=== PATIENT | female | born 1940 | race Caucasian/White ===

== ENCOUNTER 2017-10-30 10:01 | Outpatient (REF) | payer MEDICARE, SELFPAY ==
[2017-10-30 22:16] LABS: Anion Gap 5.7 mmol/L (3-11); BUN 18 mg/dL (7-18); CO2 31.3 mmol/L (21.0-32.0); CREATININE 0.99 mg/dL (0.55-1.02); Calcium 9.6 mg/dL (8.5-10.1); Chloride 103 mmol/L (98-107); Estimated GFR 54.68 (mL/min/1.73m2); Glucose 94 mg/dL (70-100); Potassium 3.8 mmol/L (3.5-5.1); Sodium 140 mmol/L (136-145)
== END 2017-10-30 10:02 ==
LOC: NCHCN 10:01
PROVIDERS: PCP Internal Medicine; Visit Provider Internal Medicine
DX: I10 Essential (primary) hypertension (principal); I83.90 Asymptomatic varicose veins of unspecified lower extremity; I87.319 Chronic venous hypertension (idiopathic) with ulcer of unspecified lower extremity
CPT/HCPCS: 80048

== ENCOUNTER 2018-11-17 09:29 | Outpatient (REF) | payer MEDICARE, SELFPAY ==
[2018-11-17 21:33] LABS: Anion Gap 10.9 mmol/L (3-11); BUN 21 mg/dL (7-18); CO2 30.1 mmol/L (21.0-32.0); CREATININE 1.03 mg/dL (0.55-1.02); Calcium 9.5 mg/dL (8.5-10.1); Calculated LDL 43 mg/dL; Chloride 102 mmol/L (98-107); Cholesterol 145 mg/dL (50-200); Glucose 97 mg/dL (70-100); HDL Cholesterol 94 mg/dL (40-60); Potassium 3.3 mmol/L (3.5-5.1); Sodium 143 mmol/L (136-145); Triglyceride 41 mg/dL (30-150)
== END 2018-11-17 09:49 ==
LOC: NCHCN 09:29
PROVIDERS: PCP Internal Medicine; Visit Provider Internal Medicine
DX: I10 Essential (primary) hypertension (principal); Z13.6 Encounter for screening for cardiovascular disorders
CPT/HCPCS: 80048; 80061

== ENCOUNTER 2019-01-05 11:04 | Outpatient (REF) | payer MEDICARE, SELFPAY ==
[2019-01-05 21:28] LABS: Potassium 3.9 mmol/L (3.5-5.1)
== END 2019-01-05 11:24 ==
LOC: NCHCN 11:04
PROVIDERS: PCP Internal Medicine; Visit Provider Internal Medicine
DX: I10 Essential (primary) hypertension (principal)
CPT/HCPCS: 84132

== ENCOUNTER 2019-03-03 16:21 | Outpatient (REF) | payer MEDICARE, SELFPAY | END 2019-03-03 16:41 | LOC: NCHCN 16:21 | PROVIDERS: PCP Internal Medicine; Visit Provider Internal Medicine | DX: R30.0 Dysuria (principal) | CPT/HCPCS: 87086 ==

== ENCOUNTER 2019-11-26 15:17 | Outpatient (REF) | payer MEDICARE, SELFPAY ==
[2019-11-26 21:05] LABS: Anion Gap 8.6 mmol/L (3-11); BUN 24 mg/dL (7-18); CO2 29.4 mmol/L (21.0-32.0); CREATININE 1.04 mg/dL (0.55-1.02); Chloride 102 mmol/L (98-107); Estimated GFR 51.38 (mL/min/1.73m2); Glucose 123 mg/dL (74-106); Potassium 3.9 mmol/L (3.5-5.1); Sodium 140 mmol/L (136-145)
== END 2019-11-26 15:37 ==
LOC: NCHCN 15:17
PROVIDERS: PCP Internal Medicine; Visit Provider Internal Medicine
DX: I10 Essential (primary) hypertension (principal)
CPT/HCPCS: 80048

== ENCOUNTER 2021-02-16 15:36 | Outpatient (REF) | payer MEDICARE, SELFPAY ==
[2021-02-16 17:05] LABS: Abs Immature Grans 0.02 10^3/uL (0.0-0.06); Absolute Basophil Count 0.09 10^3/uL (0.0-0.2); Absolute Eosinophil Count 0.06 10^3/uL (0.0-0.7); Absolute Lymphocyte Count 1.71 10^3/uL (1.2-3.4); Absolute Monocyte Count 0.68 10^3/uL (0.1-0.8); Absolute Neutrophil Count 4.37 10^3/uL (1.2-6.7); Basophils % 1.3; Eosinophils % 0.9; HCT 39.1 % (36.0-46.0); HGB 12.7 g/dL (11.2-15.7); Immature Grans % 0.3; Lymphocytes % 24.7; MCH 31.1 pg (27.0-33.0); MCHC 32.5 % (32.0-36.0); MCV 95.6 fL (80-95); MPV 12.5 fL (8.0-11.0); Monocytes % 9.8; Nucleated RBC 0 %; Platelet Count 186 10^3/uL (130-400); RBC 4.09 10^6/uL (3.93-5.22); RDW 13.1 % (11.7-14.6); RDW-SD 45.9 fL; WBC 6.93 10^3/uL (4.4-10.8)
[2021-02-16 17:50] LABS: ALT 12 U/L (14-59); AST 15 U/L (15-37); Albumin 3.8 g/dL (3.4-5.0); Alkaline Phosphatase 57 U/L (46-116); Anion Gap 4.3 mmol/L (3-11); BUN 19 mg/dL (7-18); Bilirubin, Total 0.6 mg/dL (0.2-1.0); CO2 32.7 mmol/L (21.0-32.0); CREATININE 0.9 mg/dL (0.55-1.02); Calcium 9.9 mg/dL (8.5-10.1); Chloride 103 mmol/L (98-107); Glucose 96 mg/dL (74-106); Potassium 3.9 mmol/L (3.5-5.1); Sodium 140 mmol/L (136-145); Total Protein 6.3 g/dL (6.4-8.2)
== END 2021-02-16 15:37 | disposition home or self-care (01) ==
LOC: NCHCN 15:36
PROVIDERS: PCP Internal Medicine; Visit Provider Internal Medicine
DX: I10 Essential (primary) hypertension (principal)
CPT/HCPCS: 80053; 85025

== ENCOUNTER 2021-04-13 13:26 | Outpatient (REF) | payer MEDICARE, SELFPAY ==
[2021-04-13 21:42] LABS: Bacteria Many HPF (Negative); C & S Indicated? C&S Done As Ordered; Crystals Many Calcium Oxalate HPF (Negative); Epithelial Cells Few HPF (Negative); Mucus Trace (Negative)
== END 2021-04-13 13:27 | disposition home or self-care (01) ==
LOC: NCHCN 13:26
PROVIDERS: PCP Internal Medicine; Visit Provider Registered Nurse
DX: R39.89 Other symptoms and signs involving the genitourinary system (principal)
CPT/HCPCS: 87077; 81015; 87086; 87186

== ENCOUNTER 2021-08-01 15:34 | Outpatient (REF) | payer MEDICARE, SELFPAY ==
[2021-08-01 14:36] LABS: HCT 42.6 % (36.0-46.0); HGB 14.3 g/dL (11.2-15.7); MCH 31.8 pg (27.0-33.0); MCHC 33.6 % (32.0-36.0); MCV 95 fL (80-95); MPV 11.8 fL (8.0-11.0); Platelet Count 150 10^3/uL (130-400); RDW 13.2 % (11.7-14.6); RDW-SD 46.8 fL
[2021-08-01 15:51] LABS: Anion Gap 8.1 mmol/L (3-11); CO2 29.9 mmol/L (21.0-32.0); CREATININE 1.1 mg/dL (0.55-1.02); Calcium 9.4 mg/dL (8.5-10.1); Chloride 104 mmol/L (98-107); Estimated GFR 48.04 (mL/min/1.73m2); Glucose 97 mg/dL (74-106); Potassium 3.9 mmol/L (3.5-5.1); Sodium 142 mmol/L (136-145)
[2021-08-01 16:11] LABS: BUN 21 mg/dL (7-18)
== END 2021-08-01 15:35 | disposition home or self-care (01) ==
LOC: NCHCN 15:34
PROVIDERS: PCP Internal Medicine; Visit Provider Family Medicine
DX: I10 Essential (primary) hypertension (principal); I73.9 Peripheral vascular disease, unspecified
CPT/HCPCS: 80048; 85027

== ENCOUNTER 2021-11-23 19:04 | Outpatient (REF) | payer MEDICARE, SELFPAY ==
[2021-11-23 20:13] LABS: Abs Immature Grans 0.13 10^3/uL (0.0-0.06); Absolute Basophil Count 0.07 10^3/uL (0.0-0.2); Absolute Eosinophil Count 0.14 10^3/uL (0.0-0.7); Absolute Lymphocyte Count 1.89 10^3/uL (1.2-3.4); Absolute Monocyte Count 0.91 10^3/uL (0.1-0.8); Basophils % 0.4; Eosinophils % 0.8; HCT 23.6 % (36.0-46.0); HGB 7.8 g/dL (11.2-15.7); Immature Grans % 0.7; Lymphocytes % 10.6; MCH 31.3 pg (27.0-33.0); MCHC 33.1 % (32.0-36.0); MCV 95 fL (80-95); MPV 10.1 fL (8.0-11.0); Monocytes % 5.1; Neutrophils % 82.4; Platelet Count 323 10^3/uL (130-400); RBC 2.49 10^6/uL (3.93-5.22); RDW 14.3 % (11.7-14.6); RDW-SD 48.6 fL; WBC 17.81 10^3/uL (4.4-10.8)
[2021-11-23 20:17] LABS: Anion Gap 6.4 mmol/L (3-11); BUN 35 mg/dL (7-18); CO2 28.6 mmol/L (21.0-32.0); CREATININE 0.8 mg/dL (0.55-1.02); Calcium 8.7 mg/dL (8.5-10.1); Chloride 98 mmol/L (98-107); Glucose 144 mg/dL (74-106); Potassium 3.2 mmol/L (3.5-5.1); Sodium 133 mmol/L (136-145)
[2021-11-23 20:21] LABS: Absolute Neutrophil Count 14.68 10^3/uL (1.2-6.7)
== END 2021-11-23 19:05 | disposition home or self-care (01) ==
LOC: LBN 19:04
PROVIDERS: PCP Internal Medicine; Visit Provider Family Medicine
DX: Z47.89 Encounter for other orthopedic aftercare (principal)
CPT/HCPCS: 80048; 85025

== ENCOUNTER 2021-11-27 18:12 | Outpatient (REF) | payer SELFPAY ==
[2021-11-27 19:36] LABS: Abs Immature Grans 0.07 10^3/uL (0.0-0.06); Absolute Basophil Count 0.06 10^3/uL (0.0-0.2); Absolute Neutrophil Count 12.04 10^3/uL (1.2-6.7); Basophils % 0.4; Eosinophils % 1.4; HCT 24.4 % (36.0-46.0); Immature Grans % 0.5; Lymphocytes % 11.1; MCH 31.7 pg (27.0-33.0); MCHC 32.8 % (32.0-36.0); MCV 97 fL (80-95); Monocytes % 8.1; Neutrophils % 78.5; Platelet Count 415 10^3/uL (130-400); RBC 2.52 10^6/uL (3.93-5.22); RDW-SD 53.8 fL; WBC 15.34 10^3/uL (4.4-10.8)
[2021-11-27 19:59] LABS: Absolute Eosinophil Count 0.21 10^3/uL (0.0-0.7); Absolute Monocyte Count 1.24 10^3/uL (0.1-0.8)
[2021-11-27 21:12] LABS: Iron 26 ug/dL (50-170)
[2021-11-27 21:38] LABS: Anion Gap 10.4 mmol/L (3-11); BUN 12 mg/dL (7-18); CO2 26.6 mmol/L (21.0-32.0); CREATININE 0.7 mg/dL (0.55-1.02); Calcium 9.3 mg/dL (8.5-10.1); Chloride 96 mmol/L (98-107); Estimated GFR 87.92 (mL/min/1.73m2); Ferritin 283 ng/mL (8-252); Glucose 78 mg/dL (74-106); Potassium 3.1 mmol/L (3.5-5.1); Sodium 133 mmol/L (136-145); Vitamin B12 1948 pg/mL (193-986)
== END 2021-11-27 18:13 | disposition home or self-care (01) ==
LOC: LBN 18:12
PROVIDERS: PCP Internal Medicine; Visit Provider Family Medicine
DX: Z47.89 Encounter for other orthopedic aftercare (principal)
CPT/HCPCS: 80048; 82607; 82728; 83540; 85025

== ENCOUNTER 2021-11-29 12:29 | Outpatient (REF) | payer SELFPAY ==
[2021-11-29 16:54] LABS: Abs Immature Grans 0.06 10^3/uL (0.0-0.06); Absolute Basophil Count 0.09 10^3/uL (0.0-0.2); Absolute Eosinophil Count 0.09 10^3/uL (0.0-0.7); Absolute Monocyte Count 0.84 10^3/uL (0.1-0.8); Basophils % 0.7; Eosinophils % 0.7; HCT 26.5 % (36.0-46.0); HGB 8.6 g/dL (11.2-15.7); Immature Grans % 0.5; Lymphocytes % 7.8; MCHC 32.5 % (32.0-36.0); MCV 99 fL (80-95); MPV 9.9 fL (8.0-11.0); Monocytes % 6.9; Neutrophils % 83.4; Platelet Count 552 10^3/uL (130-400); RBC 2.69 10^6/uL (3.93-5.22); RDW 16.8 % (11.7-14.6); RDW-SD 58.7 fL; WBC 12.23 10^3/uL (4.4-10.8)
[2021-11-29 17:22] LABS: Absolute Lymphocyte Count 0.95 10^3/uL (1.2-3.4)
== END 2021-11-29 12:30 | disposition home or self-care (01) ==
LOC: LBN 12:29
PROVIDERS: PCP Internal Medicine; Visit Provider Family Medicine
DX: D64.9 Anemia, unspecified (principal); E78.5 Hyperlipidemia, unspecified
CPT/HCPCS: 85025

== ENCOUNTER 2022-03-08 16:19 | Outpatient (REF) | payer MEDICARE, SELFPAY ==
[2022-03-08 15:19] LABS: Abs Immature Grans 0.03 10^3/uL (0.0-0.06); Absolute Basophil Count 0.11 10^3/uL (0.0-0.2); Absolute Eosinophil Count 0.19 10^3/uL (0.0-0.7); Absolute Lymphocyte Count 2.08 10^3/uL (1.2-3.4); Absolute Neutrophil Count 5.08 10^3/uL (1.2-6.7); Basophils % 1.3; Eosinophils % 2.3; Immature Grans % 0.4; Lymphocytes % 25.1; MCH 29.5 pg (27.0-33.0); MCHC 31.8 % (32.0-36.0); MCV 93 fL (80-95); MPV 11.3 fL (8.0-11.0); Monocytes % 9.7; Neutrophils % 61.2; Platelet Count 303 10^3/uL (130-400); RBC 4.74 10^6/uL (3.93-5.22); RDW 13.6 % (11.7-14.6); RDW-SD 46.5 fL; WBC 8.29 10^3/uL (4.4-10.8)
[2022-03-08 16:39] LABS: ALT 9 U/L (14-59); AST 16 U/L (15-37); Alkaline Phosphatase 67 U/L (46-116); Anion Gap 10.2 mmol/L (3-11); BUN 18 mg/dL (7-18); Bilirubin, Total 0.5 mg/dL (0.2-1.0); CO2 27.8 mmol/L (21.0-32.0); CREATININE 0.9 mg/dL (0.55-1.02); Chloride 105 mmol/L (98-107); Estimated GFR 65.03 (mL/min/1.73m2); Glucose 99 mg/dL (74-106); Potassium 3.3 mmol/L (3.5-5.1); Sodium 143 mmol/L (136-145); TSH 0.96 uIU/mL (0.36-3.74); Total Protein 6.8 g/dL (6.4-8.2)
== END 2022-03-08 16:20 | disposition home or self-care (01) ==
LOC: LBN 16:19
PROVIDERS: PCP Internal Medicine; Visit Provider Family Medicine
DX: I05.1 Rheumatic mitral insufficiency (principal)
CPT/HCPCS: 80053; 84443; 85025

== ENCOUNTER 2022-03-14 21:21 | Outpatient (REF) | payer MEDICARE, SELFPAY ==
[2022-03-14 21:51] LABS: Bilirubin Negative (Negative); Blood Negative (Negative); Clarity Sl Cloudy (Clear); Glucose Negative (Negative); Ketones Negative (Negative); Leukocyte Esterase Trace (Negative); Nitrite Negative (Negative); Specific Gravity 1.025 (1.005-1.025); Urobilinogen 0.2 EU/dL (Up TO 0.2); pH 6.5 (5-8)
[2022-03-14 22:39] LABS: Bacteria Rare HPF (Negative); C & S Indicated? C&S Done As Ordered; Crystals Mod Calcium Oxalate HPF (Negative); Epithelial Cells Few HPF (Negative); Mucus Trace (Negative)
== END 2022-03-14 21:22 | disposition home or self-care (01) ==
LOC: LBN 21:21
PROVIDERS: Family Medicine; PCP Internal Medicine; Visit Provider Family Medicine
DX: N39.0 Urinary tract infection, site not specified (principal)
CPT/HCPCS: 81003; 81015; 87086

== ENCOUNTER 2022-03-27 16:52 | Outpatient (CLI) | payer MEDICARE, SELFPAY ==
--- NOTE | 2022-03-27 | DI.RAD_ITS ---
Exam(s) XR HIP PELVIS ADULT BL EXAM: XR HIP PELVIS ADULT BL CLINICAL HISTORY: HX OF FALL, PAIN. TECHNIQUE: 2D digital imaging was performed. COMPARISON: No exams were available for comparison FINDINGS: There is no evidence of pelvic nor hip fracture. right hip prosthesis noted. left hip appears unrem arkable. no pelvic fractures. IMPRESSION: No fractures. Right hip prosthesis. DATA REPOSITORY: RADIATION DOSE DELIVERED:
== END 2022-03-27 17:12 ==
PROVIDERS: PCP Internal Medicine; Visit Provider Family Medicine
DX: M25.551 Pain in right hip (principal); M25.552 Pain in left hip; Z96.641 Presence of right artificial hip joint; Z91.81 History of falling
CPT/HCPCS: 73521

== ENCOUNTER 2022-06-20 08:58 | Emergency (ER) | payer MEDICARE, SELFPAY ==
[2022-06-20] VITALS (33 sets, daily range): BP systolic 139–192; BP diastolic 79–114; PULSE 69–97; RESP 14–23; TEMP 36.5; O2SAT 77–97
--- NOTE | 2022-06-20 08:45 | RT.EKG_ITS ---
APPROVED REPORT Exam: Resting ECG Reason for Exam: epigastric, shoulder pain Patient Location: E HR:75 bpm ECG Measurements Heart Rate 75 AXIS WA 165 P 47 QRSd 118 QRS -36 QT 428 T 112 QTc 477 Conclusion Sinus rhythm...normal P axis, V-rate 60- 99 LVH with IVCD, LAD and secondary repol abnrm...multi-criteria, wQRSd, abnr ST-T sinus rhtyhm, left axis, LVH
[2022-06-20 09:30] LABS: Lactate 1.3 mmol/L (0.6-1.4)
[2022-06-20 09:32] LABS: Abs Immature Grans 0.02 10^3/uL (0.0-0.06); Absolute Basophil Count 0.06 10^3/uL (0.0-0.2); Absolute Eosinophil Count 0.08 10^3/uL (0.0-0.7); Absolute Lymphocyte Count 1.27 10^3/uL (1.2-3.4); Absolute Monocyte Count 0.57 10^3/uL (0.1-0.8); Absolute Neutrophil Count 5.67 10^3/uL (1.2-6.7); Basophils % 0.8; HCT 42.1 % (36.0-46.0); Immature Grans % 0.3; Lymphocytes % 16.6; MCH 31.6 pg (27.0-33.0); MCHC 33.3 % (32.0-36.0); MCV 95 fL (80-95); MPV 11.2 fL (8.0-11.0); Monocytes % 7.4; Neutrophils % 73.9; Platelet Count 183 10^3/uL (130-400); RBC 4.43 10^6/uL (3.93-5.22); RDW 13.5 % (11.7-14.6); RDW-SD 47.6 fL; WBC 7.67 10^3/uL (4.4-10.8)
--- NOTE | 2022-06-20 09:45 | DI.CT_ITS ---
Exam(s) CT CHEST/ABD/PEL W EXAM: CT CHEST/ABD/PEL W CLINICAL HISTORY: Right shoulder pain, epigastric pain, chest pain TECHNIQUE: Imaging Protocol: Axial computed tomography images with coronal and sagittal reformatted images were created and reviewed CONTRAST MATERIAL: Intravenous: Omnipaque 350 contrast volume:100 mL Oral: No COMPARISON: CR XR HIP PELVIS ADULT BL from 03/27/2022 FINDINGS: The examination is limited due to patient motion artifact. CHEST: Tracheobronchial tree: Patent where visualized. Pulmonary parenchyma: There is atelectasis or scarring present. There is a small right pleural effus ion with subjacent infiltrate which may represent atelectasis or pneumonia. No architectural distort ion. Visualized thyroid gland: Unremarkable. Mediastinum and Mihaela: No dominant adenopathy or fluid collection. The esophagus is unremarkable. Pleura: There is a small right pleural effusion. No significant left pleural effusion. No pneumotho rax. Heart: Cardiomegaly. Coronary artery calcifications are present. There is calcification of the mitr al valve. No pericardial effusion. Pulmonary arteries: Due to low lung volumes and patient motion the segmental and subsegmental pulmona ry arteries are poorly opacified. No large central pulmonary embolus is identified. Aorta: Thoracic aorta non-dilated. Atherosclerosis is present. No evidence of dissection. Lymph nodes: Within normal limits. Soft tissues: Unremarkable. Bones:Within normal limits for the patient's age. There are old right rib fractures. There is also an old deformity of the inferior aspect of the left scapula. There are compression deformity involvi ng the inferior endplate of T1, the superior endplates of T3 and T4 and the T7 vertebral body. There is mild retropulsion posteriorly of the T7 vertebral body but no significant central spinal canal co mpromise is present. There is a right convex thoracic scoliosis. ABDOMEN: Liver: Normal density. No measurable mass. Portal, Superior Mesenteric, and Splenic Veins: Unremarkable. Gallbladder and Biliary Tract: Status post cholecystectomy. There is dilatation of the common bile d uct which may be secondary to post cholecystectomy. Pancreas: Normal density, no abnormal calcifications or inflammatory process. Spleen: Normal. Adrenals: No masses seen. Kidneys: Normal size, contour and axis. No radiodense stones or obstructive uropathy. There is a 0.6 cm simple cyst in the right kidney. No follow-up is recommended. Abdominal Aorta: Abdominal portion non-dilated. Atherosclerosis is present. Bowel: There is diverticulosis of the colon but no evidence of acute diverticulitis. There is no adriana dence of bowel obstruction. There is a moderate amount of stool in the colon which may represent con stipation. No evidence of appendicitis. Peritoneal Cavity: No ascites, collection or mesenteric inflammatory response. No free air. Lymph Nodes: Within normal limits. Bones: Within normal limits for the patient's age. The patient has a right hip prosthesis. Vertical ly oriented areas of sclerosis and lucency are seen in the sacral ala bilaterally consistent with ins ufficiency fractures. Soft Tissues: Unremarkable. PELVIS: Portions of the pelvis are obscured due to artifact from the right hip prosthesis. Bladder: Symmetric distention, no gross wall thickening. Reproductive Organs: The patient appears to be status post hysterectomy. Lymph Nodes: Within normal limits. Bones: Within normal limits. IMPRESSION: 1. Small right pleural effusion and subjacent infiltrate which may represent atelectasis or pneumonia . 2. Compression fracture deformities involving T1, T3, T4 and T7. These are indeterminate in the acui ty. If further imaging is warranted a CT or MRI may be considered. 3. Colonic diverticulosis but no evidence of acute diverticulitis. 4. Large amount of stool in the colon which may represent constipation. 5. Findings suggestive of sacral insufficiency fractures. 6. Findings were discussed with Soraida Quintanilla on 06/20/2022 at 11:20 a.m. RADIATION DOSE DELIVERED: 680.65mGy.cm Total DLP DATA REPOSITORY: All CT scans at this facility are submitted to the National Radiology Data Registry (NRDR) Dose Index Registry (DIR) with the [employer] (ACR). RADIATION OPTIMIZATION: All CT scans at this facility use at least one of these dose optimization te chniques: automated exposure control; mA and/or kV adjustment per patient size (includes targeted exa ms where dose is matched to clinical indication); or iterative reconstruction.
[2022-06-20 10:04] LABS: Bilirubin Negative (Negative); Blood Negative (Negative); Clarity Sl Cloudy (Clear); Glucose Negative (Negative); Ketones Negative (Negative); Leukocyte Esterase Negative (Negative); Nitrite Negative (Negative); Urobilinogen 0.2 mg/dL (Up to 0.2)
[2022-06-20 10:06] LABS: ALT 6 U/L (14-59); AST 12 U/L (15-37); Albumin 3.6 g/dL (3.4-5.0); Alkaline Phosphatase 81 U/L (46-116); Anion Gap 7.6 mmol/L (3-11); BUN 15 mg/dL (7-18); Bilirubin, Total 0.7 mg/dL (0.2-1.0); CO2 32.4 mmol/L (21.0-32.0); CREATININE 0.8 mg/dL (0.55-1.02); Calcium 10.7 mg/dL (8.5-10.1); Chloride 103 mmol/L (98-107); Glucose 123 mg/dL (74-106); Lipase 12 U/L (16-77); Magnesium 1.4 mg/dL (1.8-2.4); Potassium 3.2 mmol/L (3.5-5.1); Sodium 143 mmol/L (136-145); Troponin I < 50 ng/L (<or=60)
--- NOTE | 2022-06-20 10:39 | ED.GENADUL_ITS ---
Discharge Plan Disposition Patient Disposition: Home Discharge Details Clinical Impression: Pneumonia, Pleural effusion, Hypomagnesemia, Acute hyperkalemia, Acute constipation, Closed compression fracture of thoracic vertebra, Bilateral sacral insufficiency fracture Primary Care Provider: Shania Parker ED Provider: Soraida Palacios Home Meds and New Rx's Prescriptions: New doxycycline hyclate 100 mg capsule 100 mg PO BID Qty: 20 0RF Mag 64 64 mg tablet,delayed release (DR/EC) 64 mg PO DAILY Qty: 10 0RF potassium chloride 20 mEq/15 mL liquid 10 meq PO DAILY Qty: 450 0RF Continued aspirin 325 MG tablet 325 mg PO DAILY hydrochlorothiazide 50 MG tablet 50 mg PO DAILY potassium chloride 20 MEQ packet 20 meq PO DAILY ascorbic acid (vitamin C) [Vitamin C] 500 MG tablet 1 tab PO DAILY One Daily Men's 50+ 1 EACH tablet 1 tab PO DAILY Caltrate 600-D Plus Minerals 1 EACH tablet 1 tab PO DAILY docusate sodium [Colace] 100 MG capsule 100 mg PO DAILY atorvastatin 20 mg Tablet 20 mg PO DAILY hydrocodone-acetaminophen 5-325 mg Tablet 1 tab PO Q8H PRN PRN acetaminophen 500 mg Tablet 500 mg PO Q6H PRN fluoxetine 20 mg Tablet 30 mg PO DAILY carbidopa-levodopa 25-100 mg Tablet 0.5 tab PO HS carbidopa-levodopa 25-100 mg Tablet 1 tab PO BID ibandronate 150 mg Tablet 150 mg PO DAILY melatonin 5 mg Tablet 5 mg PO HS PRN Discharge Instructions Instructions: Constipation (ED), Hypomagnesemia (ED), Pneumonia (ED) Additional Instructions: Please have your potassium and magnesium rechecked You are quite constipated, please restart your Dulcolax suppositories and use Fleet enema as needed Take the antibiotic doxycycline for suspected pneumonia Yogurt daily while on an antibiotic You have likely old fractures to your thoracic spine and your sacral region, continue on Tylenol as needed for discomfort Follow-up with your primary care physician Please return earlier should you have new or worsening complaints Potassium has been supplemented with 40 mEq of potassium for potassium of 3.2 and magnesium of 1.4 was supplemented with 1 g of magnesium Please start taking magnesium and potassium supplementation Referrals: Shania Parker [Primary Care Provider] - Discharge Data Discharge Date/Time-TO BE ENTERED AT DEPARTURE: 06/20/22 12:12 Medical Decision Making This 81-year-old female presents with report of epigastric pain and right shoulder pain for the past several hours. Given her age comorbidities, CT chest abdomen pelvis were ordered, these do not show evidence of acute abnormality She does have constipation, will reinitiate her bowel regimen at home Magnesium and potassium are low, will supplement in the emergency department with 40 mEq potassium and 1 g of IV mag Compression fractures to thoracic spine per radiology interpretation of CT and my review, age-indeterminate, patient denies any recent falls Sacroiliac insufficiency fractures, nontender in these areas Patient declines any pain throughout the stay, she is alert but appears confused No evidence of urinary tract infection, at her neurological baseline per son and staff On CT scan possible infiltrate, given age and comorbidities, will treat with doxycycline, first dose given in the emergency department Will need close outpatient reassessment Return precautions reviewed and patient and son expressed understanding, spoke with Elvis, patient's son and DPOA prior to departure HPI General Date/Time Provider Initiated Documentation: 06/20/22 09:01 . HPI Narrative: This 81-year-old female with a history of dementia, Parkinson's, hyperlipidemia presents with reports of right upper quadrant pain with radiation to right shoulder. Denies any chest pain or shortness of breath. Denies any nausea or vomiting. States her symptoms began this morning. Denies history of similar symptoms in the past. Related Data Home Medications Medication Instructions Recorded Confirmed ascorbic acid (vitamin C) 500 mg 1 tab PO DAILY 08/20/13 06/20/22 tablet (Vitamin C) aspirin 325 mg tablet 325 mg PO DAILY 08/20/13 06/20/22 calcium 600 mg-D3 800 unit-mag11 1 tab PO DAILY 08/20/13 06/20/22 50 [id number]-s.borat tablet (Caltrate 600-D Plus Minerals) hydrochlorothiazide 50 mg tablet 50 mg PO DAILY 08/20/13 09/08/13 multivitamin with minerals (One 1 tab PO DAILY 08/20/13 06/20/22 Daily Men's 50+ tablet) potassium chloride 20 mEq oral 20 meq PO DAILY 08/20/13 09/08/13 packet docusate sodium 100 mg capsule 100 mg PO DAILY 08/25/13 06/20/22 (Colace) acetaminophen 500 mg tablet 500 mg PO Q6H PRN 06/20/22 06/20/22 atorvastatin 20 mg tablet 20 mg PO DAILY 06/20/22 06/20/22 carbidopa 25 mg-levodopa 100 mg 0.5 tab PO HS 06/20/22 06/20/22 tablet carbidopa 25 mg-levodopa 100 mg 1 tab PO BID 06/20/22 06/20/22 tablet doxycycline hyclate 100 mg capsule 100 mg PO BID #20 caps 06/20/22 fluoxetine 20 mg tablet 30 mg PO DAILY 06/20/22 06/20/22 hydrocodone 5 mg-acetaminophen 325 1 tab PO Q8H PRN PRN 06/20/22 06/20/22 mg tablet ibandronate 150 mg tablet 150 mg PO DAILY 06/20/22 06/20/22 magnesium chloride 64 mg 64 mg PO DAILY #10 tabs 06/20/22 (magnesium chloride) tablet,delayed release (Mag 64) melatonin 5 mg tablet 5 mg PO HS PRN 06/20/22 06/20/22 potassium chloride 20 mEq/15 mL 10 meq (7.5 mL) PO DAILY #450 mL 06/20/22 oral liquid Previous Rx's Medication Instructions Recorded doxycycline hyclate 100 mg capsule 100 mg PO BID #20 caps 06/20/22 magnesium chloride 64 mg 64 mg PO DAILY #10 tabs 06/20/22 (magnesium chloride) tablet,delayed release (Mag 64) potassium chloride 20 mEq/15 mL 10 meq (7.5 mL) PO DAILY #450 mL 06/20/22 oral liquid Allergies Allergy/AdvReac Type Severity Reaction Status Date / Time Penicillins Allergy Unknown Unverified 09/08/13 09:02 General Stated Complaint: Chest Pain VANDANA: 3 PFSH All Active Problems (Updated 06/20/22 @ 11:43 by BHARGAV Burgess) Pneumonia (Acute) Pleural effusion (Acute) Hypomagnesemia (Acute) Acute hyperkalemia (Acute) Acute constipation (Acute) Closed compression fracture of thoracic vertebra (Acute) Bilateral sacral insufficiency fracture (Acute) Medical History (Updated 06/20/22 @ 11:43 by BHARGAV Burgess) Cardiac murmur, unspecified Essential (primary) hypertension History of falling Major depressive disorder, recurrent, moderate Muscle weakness (generalized) Other abnormalities of gait and mobility Parkinson disease Pure hypercholesterolemia, unspecified Rheumatic mitral insufficiency Unspecified dementia, unspecified severity, without behavioral disturbance, psychotic disturbance, mood disturbance, and anxiety Social History Smoking/Tobacco Use Status: Never Smoking risk assessment performed?: Yes Drug use: Never Do you feel safe at home: Yes Do you feel safe in your relationship?: Yes Exam Narrative Exam Narrative: Patient is 81-year-old female, calm and cooperative, mild tenderness but no acute distress, pupils equal round reactive to light and accommodation, moist Dukas membranes, lungs clear to auscultation, cardiac rate rhythm regular, no abdominal tenderness, no pallor, no peripheral edema, alert and oriented to person and location, distal pulses intact Course Vital Signs Vital signs: Vital Signs Temperature 36.5 C 06/20/22 08:59 Pulse 75 06/20/22 08:59 Respiratory Rate 18 06/20/22 08:59 Blood Pressure 192/99 H 06/20/22 08:59 Pulse Oximetry 97 06/20/22 08:59 Temperature 36.5 C 06/20/22 08:59 Temperature Source Oral 06/20/22 08:59 Pulse 70 06/20/22 10:00 Pulse 71 06/20/22 10:10 Respiratory Rate 15 06/20/22 10:10 Respiratory Effort Normal, Non-Labored 06/20/22 09:31 Respiratory Depth Normal 06/20/22 09:31 Respiratory Pattern Normal 06/20/22 09:31 Blood Pressure 149/79 H 06/20/22 10:00 Blood Pressure Mean 96 06/20/22 10:00 Blood Pressure Position Sitting 06/20/22 08:59 Pulse Oximetry 95 06/20/22 10:10 Oxygen Delivery Method Room Air 06/20/22 08:59 Oxygen Flow Rate 0 06/20/22 08:59 Pain Level 0 06/20/22 08:59 Lab/Test Results Lab/Test Results: Laboratory Tests Range/Units 06/20/22 06/20/22 06/20/22 09:25 09:25 09:25 WBC (4.4-10.8) 10^3/uL 7.67 RBC (3.93-5.22) 10^6/uL 4.43 Hgb (11.2-15.7) g/dL 14.0 Hct (36.0-46.0) % 42.1 MCV (80-95) fL 95 MCH (27.0-33.0) pg 31.6 MCHC (32.0-36.0) % 33.3 RDW (11.7-14.6) % 13.5 Plt Count (130-400) 10^3/uL 183 MPV (8.0-11.0) fL 11.2 H Immature Gran % 0.3 Neutrophils % 73.9 Lymphocytes % 16.6 Monocytes % 7.4 Eosinophils % 1.0 Basophils % 0.8 Nucleated RBC % (0.0-0.3) % 0.0 Absolute Neutrophils (1.2-6.7) 10^3/uL 5.67 Absolute Lymphocytes (1.2-3.4) 10^3/uL 1.27 Absolute Monocytes (0.1-0.8) 10^3/uL 0.57 Absolute Eosinophils (0.0-0.7) 10^3/uL 0.08 Absolute Basophils (0.0-0.2) 10^3/uL 0.06 VBG Lactate (0.6-1.4) mmol/L 1.3 Sodium (136-145) mmol/L 143 Potassium (3.5-5.1) mmol/L 3.2 L Chloride (98-107) mmol/L 103 Carbon Dioxide (21.0-32.0) mmol/L 32.4 H Anion Gap (3-11) mmol/L 7.6 BUN (7-18) mg/dL 15 Creatinine (0.55-1.02) mg/dL 0.8 Est GFR (CKD-EPI 2020) (mL/min/1.73m2) 74.90 Glucose (74-106) mg/dL 123 H Calcium (8.5-10.1) mg/dL 10.7 H Magnesium (1.8-2.4) mg/dL 1.4 L Total Bilirubin (0.2-1.0) mg/dL 0.7 AST (15-37) U/L 12 L ALT (14-59) U/L 6 L Alkaline Phosphatase (46-116) U/L 81 Troponin I (<or=60) ng/L < 50 Total Protein (6.4-8.2) g/dL 7.0 Albumin (3.4-5.0) g/dL 3.6 Lipase (16-77) U/L 12 L Urine Color (Yellow) Urine Clarity (Clear) Urine pH (5-8) Ur Specific [place] (1.005-1.025) Urine Protein (Negative) mg/dL Urine Ketones (Negative) mg/dL Urine Blood (Negative) Urine Nitrite (Negative) Urine Bilirubin (Negative) Urine Urobilinogen (Up to 0.2) mg/dL Ur Leukocyte Esterase (Negative) Urine Glucose (Negative) mg/dL Range/Units 06/20/22 09:50 WBC (4.4-10.8) 10^3/uL RBC (3.93-5.22) 10^6/uL Hgb (11.2-15.7) g/dL Hct (36.0-46.0) % MCV (80-95) fL MCH (27.0-33.0) pg MCHC (32.0-36.0) % RDW (11.7-14.6) % Plt Count (130-400) 10^3/uL MPV (8.0-11.0) fL Immature Gran % Neutrophils % Lymphocytes % Monocytes % Eosinophils % Basophils % Nucleated RBC % (0.0-0.3) % Absolute Neutrophils (1.2-6.7) 10^3/uL Absolute Lymphocytes (1.2-3.4) 10^3/uL Absolute Monocytes (0.1-0.8) 10^3/uL Absolute Eosinophils (0.0-0.7) 10^3/uL Absolute Basophils (0.0-0.2) 10^3/uL VBG Lactate (0.6-1.4) mmol/L Sodium (136-145) mmol/L Potassium (3.5-5.1) mmol/L Chloride (98-107) mmol/L Carbon Dioxide (21.0-32.0) mmol/L Anion Gap (3-11) mmol/L BUN (7-18) mg/dL Creatinine (0.55-1.02) mg/dL Est GFR (CKD-EPI 2020) (mL/min/1.73m2) Glucose (74-106) mg/dL Calcium (8.5-10.1) mg/dL Magnesium (1.8-2.4) mg/dL Total Bilirubin (0.2-1.0) mg/dL AST (15-37) U/L ALT (14-59) U/L Alkaline Phosphatase (46-116) U/L Troponin I (<or=60) ng/L Total Protein (6.4-8.2) g/dL Albumin (3.4-5.0) g/dL Lipase (16-77) U/L Urine Color (Yellow) Yellow Urine Clarity (Clear) Sl Cloudy Urine pH (5-8) 7.0 Ur Specific [place] (1.005-1.025) 1.020 Urine Protein (Negative) mg/dL Negative Urine Ketones (Negative) mg/dL Negative Urine Blood (Negative) Negative Urine Nitrite (Negative) Negative Urine Bilirubin (Negative) Negative Urine Urobilinogen (Up to 0.2) mg/dL 0.2 Ur Leukocyte Esterase (Negative) Negative Urine Glucose (Negative) mg/dL Negative
[2022-06-20] MEDS: Omnipaque 350 MG/ML 500 ML BTL-Imaging package 100 ML IJ (10:42)
[2022-06-20] MEDS: Normal Saline - Diluent 50 ML VIAL IJ (10:42)
[2022-06-20] MEDS: MAGNESIUM SULFATE 1 GM/100 ML BAG IVPB (10:59)
[2022-06-20] MEDS: Potassium Chloride Liquid 20 MEQ PKT 40 MEQ PO (11:48)
[2022-06-20] MEDS: Doxycycline Hyclate 100 MG CAP PO (11:48)
== END 2022-06-20 12:12 | disposition home or self-care (01) ==
PROVIDERS: Emergency Provider Physician Assistant; PCP Internal Medicine
DX: S22.019A Unspecified fracture of first thoracic vertebra, initial encounter for closed fracture (principal); S22.039A Unspecified fracture of third thoracic vertebra, initial encounter for closed fracture; S22.049A Unspecified fracture of fourth thoracic vertebra, initial encounter for closed fracture; S22.069A Unspecified fracture of T7-T8 vertebra, initial encounter for closed fracture; S32.10XA Unspecified fracture of sacrum, initial encounter for closed fracture; E87.5 Hyperkalemia; K59.00 Constipation, unspecified; E83.42 Hypomagnesemia; J90 Pleural effusion, not elsewhere classified; J18.9 Pneumonia, unspecified organism; G20 Parkinson's disease; F02.80 Dementia in other diseases classified elsewhere, unspecified severity, without behavioral disturbance, psychotic disturbance, mood disturbance, and anxiety; X58.XXXA Exposure to other specified factors, initial encounter; I10 Essential (primary) hypertension; Z79.82 Long term (current) use of aspirin
CPT/HCPCS: 36415; 74177; 80053; 83690; 93005; 96365; 99285; 71260; 81003; 83605; 83735; 84484; 85025; 93010; 99284; J3475

== ENCOUNTER 2022-07-06 16:24 | Outpatient (REF) | payer MEDICARE, SELFPAY ==
[2022-07-06 14:44] LABS: Magnesium 1.5 mg/dL (1.8-2.4); Potassium 3.6 mmol/L (3.5-5.1)
== END 2022-07-06 16:25 | disposition home or self-care (01) ==
LOC: LBN 16:24
PROVIDERS: PCP Internal Medicine; Visit Provider Physician Assistant
DX: E87.6 Hypokalemia (principal); E83.42 Hypomagnesemia
CPT/HCPCS: 83735; 84132

== ENCOUNTER 2022-07-24 06:48 | Outpatient (REF) | payer MEDICARE, SELFPAY ==
[2022-07-24 08:52] LABS: Bilirubin Negative (Negative); Blood Negative (Negative); Clarity Cloudy (Clear); Glucose Negative (Negative); Ketones Negative (Negative); Leukocyte Esterase Small (Negative); Nitrite Positive (Negative); Urobilinogen 0.2 mg/dL (Up to 0.2); pH >= 9.0 (5-8)
[2022-07-24 09:02] LABS: Epithelial Cells Few HPF (Negative); RBC 0-2 HPF (0-2)
[2022-07-24 09:03] LABS: Bacteria Many HPF (Negative); C & S Indicated? Yes; Casts Negative LPF (Negative); Crystals Negative HPF (Negative); Mucus Negative (Negative)
== END 2022-07-24 06:49 | disposition home or self-care (01) ==
LOC: LBN 06:48
PROVIDERS: PCP Internal Medicine; Visit Provider Family Medicine
DX: R82.998 Other abnormal findings in urine (principal); R39.89 Other symptoms and signs involving the genitourinary system
CPT/HCPCS: 87077; 81003; 81015; 87086; 87186

== ENCOUNTER → 2022-10-17 08:28 | Outpatient (BNVA) | payer MEDICARE, SELFPAY | PROVIDERS: PCP Internal Medicine; Referring Provider Family Medicine; Visit Provider Psychiatry & Neurology Neurology | DX: G20 Parkinson's disease (principal); F03.90 Unspecified dementia, unspecified severity, without behavioral disturbance, psychotic disturbance, mood disturbance, and anxiety; I95.0 Idiopathic hypotension; I10 Essential (primary) hypertension | CPT/HCPCS: 99215 ==

== ENCOUNTER 2022-10-24 02:49 | Outpatient (REF) | payer MEDICARE, SELFPAY ==
[2022-10-24 03:52] LABS: Bilirubin Small (Negative); Blood Trace-intact (Negative); Clarity Cloudy (Clear); Glucose 100 mg/dL (Negative); Ketones Trace mg/dL (Negative); Leukocyte Esterase Large (Negative); Nitrite Positive (Negative); Urobilinogen 0.2 mg/dL (Up to 0.2); pH >= 9.0 (5-8)
[2022-10-24 04:05] LABS: Bacteria Many HPF (Negative); C & S Indicated? Yes; Casts Negative LPF (Negative); Crystals Many Triple Phos HPF (Negative); Epithelial Cells Rare HPF (Negative); Mucus Negative (Negative)
== END 2022-10-24 02:50 | disposition home or self-care (01) ==
LOC: LBN 02:49
PROVIDERS: PCP Internal Medicine; Visit Provider Physician Assistant
DX: R82.998 Other abnormal findings in urine (principal); N39.0 Urinary tract infection, site not specified
CPT/HCPCS: 87077; 81003; 81015; 87086; 87186

== ENCOUNTER → 2022-12-03 13:25 | Outpatient (BNVA) | payer MEDICARE, SELFPAY | PROVIDERS: PCP Internal Medicine; Referring Provider Internal Medicine; Visit Provider Psychiatry & Neurology Neurology | DX: F03.90 Unspecified dementia, unspecified severity, without behavioral disturbance, psychotic disturbance, mood disturbance, and anxiety (principal); I95.1 Orthostatic hypotension; G20.C Parkinsonism, unspecified | CPT/HCPCS: 99214 ==

== ENCOUNTER 2022-12-13 16:33 | Outpatient (REF) | payer MEDICARE, SELFPAY ==
[2022-12-13 16:15] LABS: Vitamin B12 423 pg/mL (193-986)
== END 2022-12-13 16:34 | disposition home or self-care (01) ==
LOC: LBN 16:33
PROVIDERS: PCP Internal Medicine; Visit Provider Family Medicine
DX: M62.81 Muscle weakness (generalized) (principal)
CPT/HCPCS: 82607

== ENCOUNTER 2023-02-23 18:27 | Outpatient (REF) | payer MEDICARE, SELFPAY ==
[2023-02-23 18:41] LABS: CREATININE 0.8 mg/dL (0.55-1.02); Estimated GFR 74.44 (mL/min/1.73m2)
== END 2023-02-23 18:28 | disposition home or self-care (01) ==
LOC: LBN 18:27
PROVIDERS: PCP Internal Medicine; Visit Provider Family Medicine
DX: E46 Unspecified protein-calorie malnutrition (principal); E87.6 Hypokalemia; E83.42 Hypomagnesemia
CPT/HCPCS: 82565

== ENCOUNTER → 2023-03-18 15:42 | Outpatient (CLI) | payer MEDICARE, SELFPAY ==
--- NOTE | 2023-03-18 15:10 | DI.RAD_ITS ---
Exam(s) XR CHEST 2V PA LATERAL EXAM: XR CHEST 2V PA LATERAL CLINICAL HISTORY: Congestion TECHNIQUE: 2D digital imaging was performed. COMPARISON: CT CT CHEST/ABD/PEL W from 06/20/2022 FINDINGS: HEART: Enlarged. Mitral annular calcifications. Aorta: Not dilated. PULMONARY VASCULATURE: Normal. LUNGS: Clear. PLEURAL SPACE: No pleural effusion or pneumothorax. BONE:Stable thoracic compression fractures. Old sternal fracture. Soft tissues: Unremarkable. IMPRESSION: No acute abnormality. DATA REPOSITORY: RADIATION DOSE DELIVERED:
== END ==
PROVIDERS: PCP Internal Medicine; Visit Provider Nurse Practitioner Adult Health
DX: R09.89 Other specified symptoms and signs involving the circulatory and respiratory systems (principal)
CPT/HCPCS: 71046

== ENCOUNTER → 2023-03-25 10:43 | Outpatient (BNVA) | payer MEDICARE, SELFPAY | PROVIDERS: PCP Internal Medicine; Visit Provider Psychiatry & Neurology Neurology | DX: G20.C Parkinsonism, unspecified (principal); F03.90 Unspecified dementia, unspecified severity, without behavioral disturbance, psychotic disturbance, mood disturbance, and anxiety | CPT/HCPCS: 99214 ==

== ENCOUNTER 2023-04-20 13:30 | Emergency (ER) | payer MEDICARE, SELFPAY ==
[2023-04-20] VITALS (29 sets, daily range): BP systolic 127–147; BP diastolic 59–89; PULSE 64–82; RESP 14–22; TEMP 35.9–37.2; O2SAT 92–96
[2023-04-20 13:57] LABS: Abs Immature Grans 0.06 10^3/uL (0.0-0.06); Absolute Basophil Count 0.08 10^3/uL (0.0-0.2); Absolute Lymphocyte Count 1.34 10^3/uL (1.2-3.4); Absolute Monocyte Count 0.48 10^3/uL (0.1-0.8); Absolute Neutrophil Count 5.54 10^3/uL (1.2-6.7); Eosinophils % 2.6; HGB 12.9 g/dL (11.2-15.7); Immature Grans % 0.8; Lymphocytes % 17.4; MCH 31.3 pg (27.0-33.0); MCHC 32.3 % (32.0-36.0); MCV 97 fL (80-95); MPV 11.9 fL (8.0-11.0); Monocytes % 6.2; Platelet Count 150 10^3/uL (130-400); RBC 4.12 10^6/uL (3.93-5.22); RDW 14.6 % (11.7-14.6); RDW-SD 51.3 fL
[2023-04-20 14:20] LABS: ALT 9 U/L (14-59); AST 15 U/L (15-37); Albumin 3.1 g/dL (3.4-5.0); Alkaline Phosphatase 65 U/L (46-116); Anion Gap 6.4 mmol/L (3-11); BUN 16 mg/dL (7-18); Bilirubin, Total 0.4 mg/dL (0.2-1.0); CO2 29.6 mmol/L (21.0-32.0); CREATININE 0.8 mg/dL (0.55-1.02); Calcium 8.7 mg/dL (8.5-10.1); Chloride 107 mmol/L (98-107); Estimated GFR 74.44 (mL/min/1.73m2); Glucose 153 mg/dL (74-106); Magnesium 1.6 mg/dL (1.8-2.4); Potassium 3.8 mmol/L (3.5-5.1); Sodium 143 mmol/L (136-145); Total Protein 6.3 g/dL (6.4-8.2)
--- NOTE | 2023-04-20 14:42 | DI.CT_ITS ---
Exam(s) CT HEAD CERV SPINE FACIAL WO EXAM: CT HEAD CERV SPINE FACIAL WO CLINICAL HISTORY: fall - right sided trauma. TECHNIQUE: Imaging Protocol: Axial computed tomography images with coronal and sagittal reformatted images were created and reviewed COMPARISON: No exams were available for comparison FINDINGS: CT Head: Ventricles and Extra axial spaces: Normal in size and morphology for the patient's age. Hemorrhage: There is a small right convex subdural hematoma. There components in the right frontal a nd the right parietal region. It measures 4 mm in thickness. Cerebral parenchyma: There are areas of decreased attenuation in the white matter consistent with chr onic microvascular ischemic disease. No mass effect is identified. No evidence of an acute territor ial infarct. Midline shift: None. Brainstem/Cerebellum: Normal. Calvarium: Normal. Visualized Paranasal sinuses/Mastoids: Clear. Soft Tissues: There is a scalp hematoma overlying the right parietal bone. CT Face: Facial Bones: No definite fracture is noted in facial bones. Sinuses and Mastoids: No fluid levels are seen. The mastoid air cells are clear. Globes, extraocular muscles, optic nerves and retrobulbar fat: Normal. Upper aerodigestive tract: Normal. Mandible and bilateral temporomandibular joints: Degenerative changes are seen at the temporomandibu lar joints. Soft tissues: There is a scalp hematoma overlying the right parietal bone. CT Cervical Spine: Bones: No acute fracture or subluxation. There are compression deformities at C7, T2, T4 and T5. The bones are osteopenic. Age-appropriate degenerative changes are seen in the cervical spine. Soft Tissues: Unremarkable. Lung Apices: There is scarring in the lung apices. IMPRESSION: 1. There is a 4 mm right convexity subdural hematoma. There is no midline shift or mass effect. 2. No skull fracture. 3. Scalp hematoma overlying the right parietal bone. 4. No acute facial fracture. 5. No acute cervical spine fracture. RADIATION DOSE DELIVERED: 1,533.12mGy.cm Total DLP DATA REPOSITORY: All CT scans at this facility are submitted to the National Radiology Data Registry (NRDR) Dose Index Registry (DIR) with the [employer] (ACR). RADIATION OPTIMIZATION: All CT scans at this facility use at least one of these dose optimization te chniques: automated exposure control; mA and/or kV adjustment per patient size (includes targeted exa ms where dose is matched to clinical indication); or iterative reconstruction.
--- NOTE | 2023-04-20 14:57 | DI.RAD_ITS ---
Exam(s) XR PELVIS AP XR FEMUR RT EXAM: XR PELVIS AP and XR femur RT CLINICAL HISTORY: fall right sided pain. TECHNIQUE: 2D digital imaging was performed.Five images were obtained. COMPARISON: CR XR HIP PELVIS ADULT BL from 03/27/2022 FINDINGS: BONES: There is a fracture of the superior aspect of the greater trochanter. No bony destructive les ion is seen. The bones are osteopenic. There are fractures involving the right superior and inferior pubic rami. There does appear to be some callus formation about the fracture suggesting subacute fr actures. A CT scan should be considered for further characterization. JOINTS: The patient has a right hip prosthesis. There is joint space narrowing in the left hip. SOFT TISSUE: Vascular calcifications are present. IMPRESSION: 1. Suspected nondisplaced fracture involving the superior aspect of the greater trochanter of the rig ht femur. 2. Deformities involving the right superior and inferior pubic rami consistent with fractures. These are of indeterminate acuity. A CT scan should be considered for further evaluation. DATA REPOSITORY: RADIATION DOSE DELIVERED:
--- NOTE | 2023-04-20 15:08 | DI.VRAD_ITS ---
Addendum created by Steve Young MD on 04/20/2023 3:09:42 PM EST: THIS REPORT CONTAINS FINDINGS THAT MAY BE CRITICAL TO PATIENT CARE. The findings were verbally communicated via telephone conference with TITO HYMAN at 3:09 PM EST on 04/20/2023. The findings were acknowledged and understood. Initial report created on 04/20/2023 3:07:37 PM EST: PROCEDURE INFORMATION: Exam: CT Head Without Contrast Exam date and time: 04/20/2023 2:20 PM Age: 82 years old Clinical indication: Other: Fall - right sided trauma TECHNIQUE: Imaging protocol: Computed tomography of the head without contrast. COMPARISON: No relevant prior studies available. FINDINGS: Brain: There are bilateral periventricular white matter hypodensities consistent with chronic ischemic small vessel disease with volume loss and ex vacuo dilatation of the lateral ventricles. There is a 4 mm right parietotemporal subdural hematoma and a 3 mm right frontal subdural hematoma. No significant midline shift. Cerebral ventricles: See Brain finding. Paranasal sinuses: Visualized sinuses are unremarkable. No fluid levels. Mastoid air cells: Visualized mastoid air cells are well aerated. Bones/joints: Unremarkable. No acute fracture. Soft tissues: There is a right frontal subgaleal hematoma. Vasculature: There are bilateral V4 and bilateral ICA calcifications. IMPRESSION: Right cerebral convex subdural hematoma measuring 4 mm. No midline shift or uncal herniation. PROCEDURE INFORMATION: Exam: CT Maxillofacial Without Contrast Exam date and time: 04/20/2023 2:20 PM Age: 82 years old Clinical indication: Other: Fall - right sided trauma TECHNIQUE: Imaging protocol: Computed tomography of the face without contrast. COMPARISON: No relevant prior studies available. FINDINGS: Orbital cavities: Post bilateral cataract surgery. Bones/joints: There is advanced degenerative disease bilateral temporomandibular joints. No acute fracture or dislocation. Paranasal sinuses: Normal. No air-fluid levels. Soft tissues: Skin defect suggestive of right forehead laceration. IMPRESSION: No facial bone fractures. PROCEDURE INFORMATION: Exam: CT Cervical Spine Without Contrast Exam date and time: 04/20/2023 2:20 PM Age: 82 years old Clinical indication: Other: Fall - right sided trauma TECHNIQUE: Imaging protocol: Computed tomography of the cervical spine without contrast. COMPARISON: CT CHEST/ABD/PEL W 06/20/2022 10:37 AM FINDINGS: Bones/joints: Old fractures involving the right 6th and 7th ribs. There is a mild curvature of cervical spine convex to the right. There is mild retrolisthesis of C4 over C5. Old compression deformities of the C7 vertebral body, T2 vertebral body, T4 and T5 vertebral bodies. No new compression deformity. Moderate degenerative at the anterior C1-C2 articulation. There are bilateral vertebral and carotid arteries calcifications. Lungs: There are bilateral apical fibrotic changes. Pleural spaces: Small right pleural effusion. Soft tissues: Unremarkable. IMPRESSION: No acute posttraumatic changes in the cervical spine. Dictated and Authenticated by: Steve Young MD. Ordering:REJI Tenorio MD
--- NOTE | 2023-04-20 15:13 | ED.GENADUL_ITS ---
HPI <Jona Gonzalez NP - Last Filed: 04/21/23 08:03> General Mode of arrival: EMS . Date/Time Provider Initiated Documentation: 04/20/23 13:33 . Information obtained by: patient and RN notes reviewed . History of Present Ill serg 82 year old F presents to the emergency department with the chief complaint of Fall-head injury, right leg pain, Patient started experiencing this hour(s) (1) and it has been constant. No relieving factors improve symptom(s), No exacerbating factors reported . Patient notes no other symptoms.. Patient did receive the following treatments prior to arrival, none Related Data Home Medications Medication Instructions Recorded Confirmed ascorbic acid (vitamin C) 500 mg 1 tab PO DAILY 08/20/13 04/20/23 tablet (Vitamin C) calcium 600 mg-D3 800 unit-mag11 1 tab PO DAILY 08/20/13 04/20/23 50 mu-dzwh-zlsrvg-natalya-s.borat tablet (Caltrate 600-D Plus Minerals) multivitamin with minerals (One 1 tab PO DAILY 08/20/13 04/20/23 Daily Men's 50+ tablet) potassium chloride 20 mEq oral 20 meq PO DAILY 08/20/13 04/20/23 packet docusate sodium 100 mg capsule 100 mg PO DAILY 08/25/13 04/20/23 (Colace) acetaminophen 500 mg tablet 500 mg PO Q6H PRN 06/20/22 04/20/23 atorvastatin 20 mg tablet 20 mg PO DAILY 06/20/22 04/20/23 fluoxetine 20 mg tablet 30 mg PO DAILY 06/20/22 04/20/23 ibandronate 150 mg tablet 150 mg PO DAILY 06/20/22 04/20/23 magnesium chloride 64 mg 64 mg PO DAILY #10 tabs 06/20/22 04/20/23 (magnesium chloride) tablet,delayed release (Mag 64) melatonin 5 mg tablet 5 mg PO HS PRN 06/20/22 04/20/23 potassium chloride 20 mEq/15 mL 10 meq (7.5 mL) PO DAILY #450 mL 06/20/22 04/20/23 oral liquid aspirin 81 mg tablet,delayed 81 mg PO DAILY 07/05/22 04/20/23 release (Adult Aspirin Regimen) ferrous sulfate 325 mg (65 mg 325 mg PO DAILY 07/05/22 04/20/23 iron) tablet magnesium hydroxide 400 mg/5 mL 5 ml PO DAILY PRN 07/05/22 04/20/23 oral suspension (Mitchell Milk of Magnesia) sodium phosphates 19 gram-7 118 ml MN ONCE 07/05/22 04/20/23 gram/118 mL enema (Fleet Enema) carbidopa 25 mg-levodopa 100 mg 1 tab PO QID 10/17/22 04/20/23 tablet fludrocortisone 0.1 mg tablet 0.05 mg PO DAILY 10/17/22 04/20/23 mirtazapine 7.5 mg tablet 7.5 mg PO QHS 12/03/22 04/20/23 lidocaine 5 % topical patch 1 patch topical DAILY #15 ea 04/20/23 Previous Rx's Medication Instructions Recorded magnesium chloride 64 mg 64 mg PO DAILY #10 tabs 06/20/22 (magnesium chloride) tablet,delayed release (Mag 64) potassium chloride 20 mEq/15 mL 10 meq (7.5 mL) PO DAILY #450 mL 06/20/22 oral liquid lidocaine 5 % topical patch 1 patch topical DAILY #15 ea 04/20/23 Allergies Allergy/AdvReac Type Severity Reaction Status Date / Time Penicillins Allergy Unknown Other (See Verified 04/20/23 19:08 Comment) General Stated Complaint: Orthopedic VANDANA: 3 Review of Systems <Jona Gonzalez NP - Last Filed: 04/21/23 08:03> Unobtainable due to mental condition ENT Ears, Nose, Mouth, and Throat: Reports as per HPI Musculoskeletal Musculoskeletal: Reports as per HPI Exam <Jona Gonzalez NP - Last Filed: 04/21/23 08:03> Const General: cooperative, comfortable and no acute distress Orientation: alert, awake, oriented to person and confused [facility] Head: no Benjamin's sign, hematoma right frontal and no raccoon eyes Ears: hearing grossly normal bilaterally and external ears normal General nose exam: external nose normal Face and sinus: normal facial exam Mouth: oral mucosae normal Eyes General: appearance normal, both eyes and all related structures Neck Neck: full ROM and nontender Resp Effort & Inspection: normal respiratory effort and able to speak in complete sentences Auscultation: clear to auscultation bilaterally Cardio Rate: regular rate Rhythm: regular rhythm Heart Sounds: S1 normal and S2 normal GI Palpation: soft, not firm, no guarding and nontender Back/Spine/Pelvis Pelvis: no pain with anterior-posterior compression and no pain with lateral co mpression Extrem General: normal exam except as noted Right lower extremity: hip/thigh Details: normal to inspection and tenderness; no swelling and no crepitus Course <Jona Gonzalez NP - Last Filed: 04/21/23 08:03> Vital Signs Vital signs: Vital Signs Temperature 35.9 C L 04/20/23 13:26 Pulse 75 04/20/23 13:26 Respiratory Rate 14 04/20/23 13:26 Blood Pressure 139/59 L 04/20/23 13:26 Pulse Oximetry 96 04/20/23 13:26 Temperature 35.9 C L 04/20/23 13:26 Temperature Source Tympanic 04/20/23 13:26 Pulse 75 04/20/23 13:26 Respiratory Rate 14 04/20/23 13:26 Respiratory Effort Normal 04/20/23 13:42 Blood Pressure 139/59 L 04/20/23 13:26 Blood Pressure Position Sitting 04/20/23 13:26 Pulse Oximetry 96 04/20/23 13:26 Oxygen Delivery Method Room Air 04/20/23 13:26 Oxygen Flow Rate 0 04/20/23 13:26 Pain Level 0 04/20/23 13:26 Comment denies pain at rest 04/20/23 13:26 Lab/Test Results Lab/Test Results: Laboratory Tests Range/Units 04/20/23 13:45 WBC (4.4-10.8) 10^3/uL 7.70 RBC (3.93-5.22) 10^6/uL 4.12 Hgb (11.2-15.7) g/dL 12.9 Hct (36.0-46.0) % 40.0 MCV (80-95) fL 97 H MCH (27.0-33.0) pg 31.3 MCHC (32.0-36.0) % 32.3 RDW (11.7-14.6) % 14.6 Plt Count (130-400) 10^3/uL 150 MPV (8.0-11.0) fL 11.9 H Immature Gran % 0.8 Neutrophils % 72.0 Lymphocytes % 17.4 Monocytes % 6.2 Eosinophils % 2.6 Basophils % 1.0 Nucleated RBC % (0.0-0.3) % 0.0 Absolute Neutrophils (1.2-6.7) 10^3/uL 5.54 Absolute Lymphocytes (1.2-3.4) 10^3/uL 1.34 Absolute Monocytes (0.1-0.8) 10^3/uL 0.48 Absolute Eosinophils (0.0-0.7) 10^3/uL 0.20 Absolute Basophils (0.0-0.2) 10^3/uL 0.08 Sodium (136-145) mmol/L 143 Potassium (3.5-5.1) mmol/L 3.8 Chloride (98-107) mmol/L 107 Carbon Dioxide (21.0-32.0) mmol/L 29.6 Anion Gap (3-11) mmol/L 6.4 BUN (7-18) mg/dL 16 Creatinine (0.55-1.02) mg/dL 0.8 Est GFR (CKD-EPI 2020) (mL/min/1.73m2) 74.44 Glucose (74-106) mg/dL 153 H Calcium (8.5-10.1) mg/dL 8.7 Magnesium (1.8-2.4) mg/dL 1.6 L Total Bilirubin (0.2-1.0) mg/dL 0.4 AST (15-37) U/L 15 ALT (14-59) U/L 9 L Alkaline Phosphatase (46-116) U/L 65 Total Protein (6.4-8.2) g/dL 6.3 L Albumin (3.4-5.0) g/dL 3.1 L Medical Decision Making <Jona Gonzalez NP - Last Filed: 04/21/23 08:03> Patient presenting to the emergency department for chief complaint of unwitnessed fall at nursing facility. Report that patient fell while walking unsupervised hitting her head. Patient also complaining of some right leg pain. Significant contributing past medical history is history of Parkinson's with significant dementia. Reviewed COLST which states that patient is DNR/DNI, and outlines mostly comfort measures to be taken. Patient is a poor historian and is oriented to person but only complains of some leg pain with palpation otherwise not reliable source of information. Physical exam shows a hematoma to the right forehead, tenderness to the right proximal thigh, slight shortening of the right leg but otherwise noncontributory exam. Will plan on x-ray imaging of the hip and pelvis along with femur on the right, and will perform CT imaging of the head and neck. Reviewed patient's labs and CBC is overall unremarkable, CMP does show slightly low magnesium which is 1.6 which will orally replete, otherwise labs are similar to previous labs performed. Reviewed CT imaging and radiologist interpretation. Radiologist concern for a 4 mm subdural bleed on the right side and states right superior and inferior pubic rami nondisplaced fractures. To be honest on my review of imaging I do not appreciate the subtleties. Will plan on observing patient for 6 hours and repeat imaging given such small findings and no obvious neurological deficit from baseline noted at this time. As far as the rami fractures will perform CT imaging of pelvis per better visualization of subtleties. Imaging Data Radiologic Study: Imaging: CT Scan Radiologist's impression: Exam(s) Addendum created by Steve Young MD on 04/20/2023 3:09:42 PM EST: THIS REPORT CONTAINS FINDINGS THAT MAY BE CRITICAL TO PATIENT CARE. The findings were verbally communicated via telephone conference with JONA GONZALEZ at 3:09 PM EST on 04/20/2023. The findings were acknowledged and understood. Initial report created on 04/20/2023 3:07:37 PM EST: PROCEDURE INFORMATION: Exam: CT Head Without Contrast Exam date and time: 04/20/2023 2:20 PM Age: 82 years old Clinical indication: Other: Fall - right sided trauma TECHNIQUE: Imaging protocol: Computed tomography of the head without contrast. COMPARISON: No relevant prior studies available. FINDINGS: Brain: There are bilateral periventricular white matter hypodensities consistent with chronic ischemic small vessel disease with volume loss and ex vacuo dilatation of the lateral ventricles. There is a 4 mm right parietotemporal subdural hematoma and a 3 mm right frontal subdural hematoma. No significant midline shift. Cerebral ventricles: See Brain finding. Paranasal sinuses: Visualized sinuses are unremarkable. No fluid levels. Mastoid air cells: Visualized mastoid air cells are well aerated. Bones/joints: Unremarkable. No acute fracture. Soft tissues: There is a right frontal subgaleal hematoma. Vasculature: There are bilateral V4 and bilateral ICA calcifications. IMPRESSION: Right cerebral convex subdural hematoma measuring 4 mm. No midline shift or uncal herniation. PROCEDURE INFORMATION: Exam: CT Maxillofacial Without Contrast Exam date and time: 04/20/2023 2:20 PM Age: 82 years old Clinical indication: Other: Fall - right sided trauma TECHNIQUE: Imaging protocol: Computed tomography of the face without contrast. COMPARISON: No relevant prior studies available. FINDINGS: Orbital cavities: Post bilateral cataract surgery. Bones/joints: There is advanced degenerative disease bilateral temporomandibular joints. No acute fracture or dislocation. Paranasal sinuses: Normal. No air-fluid levels. Soft tissues: Skin defect suggestive of right forehead laceration. IMPRESSION: No facial bone fractures. PROCEDURE INFORMATION: Exam: CT Cervical Spine Without Contrast Exam date and time: 04/20/2023 2:20 PM Age: 82 years old Clinical indication: Other: Fall - right sided trauma TECHNIQUE: Imaging protocol: Computed tomography of the cervical spine without contrast. COMPARISON: CT CHEST/ABD/PEL W 06/20/2022 10:37 AM FINDINGS: Bones/joints: Old fractures involving the right 6th and 7th ribs. There is a mild curvature of cervical spine convex to the right. There is mild retrolisthesis of C4 over C5. Old compression deformities of the C7 vertebral body, T2 vertebral body, T4 and T5 vertebral bodies. No new compression deformity. Moderate degenerative at the anterior C1-C2 articulation. There are bilateral vertebral and carotid arteries calcifications. Lungs: There are bilateral apical fibrotic changes. Pleural spaces: Small right pleural effusion. Soft tissues: Unremarkable. IMPRESSION: No acute posttraumatic changes in the cervical spine. Dictated and Authenticated by: Steve Young MD. Ordering:REJI Tenorio MD Radiologic Study #2: Imaging: X-Ray Radiologist's impression: Exam(s) PROCEDURE INFORMATION: Exam: XR Pelvis Exam date and time: 04/20/2023 2:37 PM Age: 82 years old Clinical indication: Injury or trauma; Blunt trauma (contusions or hematomas); Injury date: 04/20/23; Prior surgery; Surgery date: 6+ months; Surgery type: Right hip replacement; Patient HX: Fall right sided pain TECHNIQUE: Imaging protocol: Radiologic exam of the pelvis. Views: 1 or 2 view. COMPARISON: CT CHEST/ABD/PEL W 06/20/2022 10:37 AM FINDINGS: Bones/joints: There is osteopenia of the visualized bones. Right hemiarthroplasty with no hardware complications. Nondisplaced fractures of the right superior and inferior pubic rami. Mild degenerative of the symphysis pubis, left hip and bilateral sacroiliac joints. Bilateral vertical sacral insufficiency fractures. Soft tissues: Unremarkable. IMPRESSION: 1. Right superior and right inferior pubic rami nondisplaced fractures. 2. Right hip hemiarthroplasty with no complications. Dictated and Authenticated by: Steve Young MD. Exam(s) PROCEDURE INFORMATION: Exam: XR Right Femur Exam date and time: 04/20/2023 2:39 PM Age: 82 years old Clinical indication: Injury or trauma; Blunt trauma; Hip and thigh or upper leg; Injury date: 04/20/23; Prior surgery; Surgery date: 6+ months; Surgery type: Right hip replacement; Patient HX: Fall right sided pain TECHNIQUE: Imaging protocol: Radiologic exam of the right femur. Views: 2 views. COMPARISON: CR XR PELVIS AP 04/20/2023 2:37 PM FINDINGS: Bones/joints: Right superior and right inferior pubic rami nondisplaced fractures. Right hip hemiarthroplasty with no hardware complications. No femoral fracture. No knee joint effusion. Soft tissues: Unremarkable. Vasculature: There are vascular calcifications. IMPRESSION: No femoral fracture. Dictated and Authenticated by: Steve Young MD. Lab Data Lab results reviewed: Yes I reviewed the patient's lab results. Quality:[facility] Health Related Social Needs: No Data to Display <Ariadna Duran NP - Last Filed: 04/20/23 23:01> Patient presenting to the emergency department for chief complaint of unwitnessed fall at nursing facility. Report that patient fell while walking unsupervised hitting her head. Patient also complaining of some right leg pain. Significant contributing past medical history is history of Parkinson's with significant dementia. Reviewed COLST which states that patient is DNR/DNI, and outlines mostly comfort measures to be taken. Patient is a poor historian and is oriented to person but only complains of some leg pain with palpation otherwise not reliable source of information. Physical exam shows a hematoma to the right forehead, tenderness to the right proximal thigh, slight shortening of the right leg but otherwise noncontributory exam. Will plan on x-ray imaging of the hip and pelvis along with femur on the right, and will perform CT imaging of the head and neck. Reviewed patient's labs and CBC is overall unremarkable, CMP does show slightly low magnesium which is 1.6 which will orally replete, otherwise labs are similar to previous labs performed. Reviewed CT imaging and radiologist interpretation. Radiologist concern for a 4 mm subdural bleed on the right side and states right superior and inferior pubic rami nondisplaced fractures. To be honest on my review of imaging I do not appreciate the subtleties. Will plan on observing patient for 6 hours and repeat imaging given such small findings and no obvious neurological deficit from baseline noted at this time. As far as the rami fractures will perform CT imaging of pelvis per better visualization of subtleties. 1629: SJ: Care assumed from provider (Leopoldo Gonzalez NP) Please see their initial HPI, PE, and documentation. Discussed patient details and case and pending workup and disposition. Patient is hemodynamically stable, and pleasantly confused at baseline. At the time of signout, awaiting CT pelvis and observation and repeat head CT at 2100 for a re-eval of subdural hematoma. Will plan to possibly consult with Neuro at [facility]. 1659: Call made to toñito patients son to update on plan of care, he verbalized understanding. 2153: Repeat CT shows unchanged small subdural hematoma, no left shift. 2215: CT Pelvis shows acute fractures of the right superior pubic ramus. Will order lidocaine patch, Tylenol and discuss strict return instructions. Will order physical therapy for later date in 2-3 weeks. Discussed strict return instructions and home care. Patient to go back to Rehab facility where she currently resides. Patient is at baseline mentation, and neuro status, no change from baseline. Discussed home care with family who verbalized understanding. [facility] <Jona Gonzalez NP - Last Filed: 04/21/23 08:03> All Active Problems (Updated 04/20/23 @ 22:22 by Ariadna Duran NP) SDH (subdural hematoma) (Acute) Closed fracture of right superior pubic ramus (Acute) Parkinson disease (Chronic) Dementia (Chronic) Medical History Wedge compression fracture of eighth thoracic vertebra Wedge compression fracture of fourth thoracic vertebra Wedge compression fracture of third thoracic vertebra Wedge compression fracture of first thoracic vertebra Constipation H/O cardiac murmur Hyperlipidemia Age related osteoporosis Pathological fracture Diverticulosis of intestine, part unspecified, without perforation or abscess without bleeding Protein calorie malnutrition Rheumatic mitral insufficiency Cardiac murmur, unspecified Major depressive disorder, recurrent, moderate Essential (primary) hypertension Surgical History S/P hysterectomy S/P cholecystectomy S/P cataract extraction S/P right hip fracture Social History Smoking/Tobacco Use Status: Never Smoking risk assessment performed?: Yes Alcohol Intake: never Drug use: Never Housing: halfway Number of Children: 2 current occupation: Retired saw mill intelligence officer basic What is your relationship status?: Panel score (0-1 are the most socially isolated patients): 0 Do you feel safe at home: Yes Do you feel safe in your relationship?: Yes Sign Out <Jona Gonzalez NP - Last Filed: 04/21/23 08:03> Sign Out Data: Sign Out Comment: Patient to abs for 6 hours and then repeat head scan. Patient also pending pelvic CT for further evaluation of rami fracture. Last updated by Jona Gonzalez NP at 04/20/23 15:44 Discharge Plan Disposition Patient Disposition: Assisted Facility(SNF) Condition: Stable Discharge Details Clinical Impression: Closed fracture of right superior pubic ramus, SDH (subdural hematoma) Primary Care Provider: Unknown,Unknown ED Provider: Ariadna Duran [place] Meds and New Rx's Prescriptions: New lidocaine 5 % adhesive patch,medicated 1 patch topical DAILY Qty: 15 0RF Rx Instructions: leave on most painful area for up to 12 hrs Continued fludrocortisone 0.1 mg tablet 0.05 mg PO DAILY mirtazapine 7.5 mg tablet 7.5 mg PO QHS magnesium hydroxide [Mitchell Milk of Magnesia] 400 mg/5 mL suspension 5 ml PO DAILY PRN aspirin [Adult Aspirin Regimen] 81 mg tablet,delayed release (DR/EC) 81 mg PO DAILY ferrous sulfate 325 mg (65 mg iron) tablet 325 mg PO DAILY Fleet Enema 19-7 gram/118 mL enema 118 ml MN ONCE potassium chloride 20 MEQ packet 20 meq PO DAILY ascorbic acid (vitamin C) [Vitamin C] 500 MG tablet 1 tab PO DAILY One Daily Men's 50+ 1 EACH tablet 1 tab PO DAILY Caltrate 600-D Plus Minerals 1 EACH tablet 1 tab PO DAILY docusate sodium [Colace] 100 MG capsule 100 mg PO DAILY atorvastatin 20 mg Tablet 20 mg PO DAILY acetaminophen 500 mg Tablet 500 mg PO Q6H PRN fluoxetine 20 mg Tablet 30 mg PO DAILY ibandronate 150 mg Tablet 150 mg PO DAILY melatonin 5 mg Tablet 5 mg PO HS PRN Mag 64 64 mg tablet,delayed release (DR/EC) 64 mg PO DAILY Qty: 10 0RF potassium chloride 20 mEq/15 mL liquid 10 meq PO DAILY Qty: 450 0RF carbidopa-levodopa 25-100 mg tablet 1 tab PO QID Discharge Instructions Instructions: Pelvic Fracture (ED), Intracranial Hematoma (ED) Additional Instructions: Ambulation with walker as tolerated and assistance. OK to take Tylenol and lidocaine patches as prescribed for pain control. The subdural hematoma is unchanged with a repeat CT. Check daily for any change in baseline mentation, weakness on one side of body or the other, facial droop, worsening headache or concerns. Follow up with primary care provider in 3-5 days. Return to ED sooner if any worsening or concerns. Increase oral fluids. Stand Alone Forms: Physical Therapy Referral Discharge Data Discharge Date/Time-TO BE ENTERED AT DEPARTURE: 04/20/23 23:10
--- NOTE | 2023-04-20 15:19 | DI.VRAD_ITS ---
PROCEDURE INFORMATION: Exam: XR Pelvis Exam date and time: 04/20/2023 2:37 PM Age: 82 years old Clinical indication: Injury or trauma; Blunt trauma (contusions or hematomas); Injury date: 04/20/23; Prior surgery; Surgery date: 6+ months; Surgery type: Right hip replacement; Patient HX: Fall right sided pain TECHNIQUE: Imaging protocol: Radiologic exam of the pelvis. Views: 1 or 2 view. COMPARISON: CT CHEST/ABD/PEL W 06/20/2022 10:37 AM FINDINGS: Bones/joints: There is osteopenia of the visualized bones. Right hemiarthroplasty with no hardware complications. Nondisplaced fractures of the right superior and inferior pubic rami. Mild degenerative of the symphysis pubis, left hip and bilateral sacroiliac joints. Bilateral vertical sacral insufficiency fractures. Soft tissues: Unremarkable. IMPRESSION: 1. Right superior and right inferior pubic rami nondisplaced fractures. 2. Right hip hemiarthroplasty with no complications. Dictated and Authenticated by: Steve Young MD. Ordering:REJI Tenorio MD
--- NOTE | 2023-04-20 15:20 | DI.VRAD_ITS ---
PROCEDURE INFORMATION: Exam: XR Right Femur Exam date and time: 04/20/2023 2:39 PM Age: 82 years old Clinical indication: Injury or trauma; Blunt trauma; Hip and thigh or upper leg; Injury date: 04/20/23; Prior surgery; Surgery date: 6+ months; Surgery type: Right hip replacement; Patient HX: Fall right sided pain TECHNIQUE: Imaging protocol: Radiologic exam of the right femur. Views: 2 views. COMPARISON: CR XR PELVIS AP 04/20/2023 2:37 PM FINDINGS: Bones/joints: Right superior and right inferior pubic rami nondisplaced fractures. Right hip hemiarthroplasty with no hardware complications. No femoral fracture. No knee joint effusion. Soft tissues: Unremarkable. Vasculature: There are vascular calcifications. IMPRESSION: No femoral fracture. Dictated and Authenticated by: Steve Young MD. Ordering:REJI Tenorio MD
[2023-04-20] MEDS: Magnesium Oxide 400 MG TAB PO (15:25)
--- NOTE | 2023-04-20 15:30 | DI.CT_ITS ---
Exam(s) CT PELVIC WO EXAM: CT PELVIC WO CLINICAL HISTORY: Further evaluation rami fracture. TECHNIQUE: Imaging Protocol: Axial computed tomography images with coronal and sagittal reformatted images were created and reviewed. COMPARISON: CT CT CHEST/ABD/PEL W from 06/20/2022 CR,XR XR FEMUR RT from 04/20/2023 CR,XR XR PELVIS AP from 04/20/2023 FINDINGS: Bones: There is an acute nondisplaced fracture of the right pubic bone just lateral to the symphysis pubis. There is an old healed right inferior pubic ramus fracture. There is a fracture of the late ral aspect of the right superior pubic ramus which appears to show some callus formation suggesting a n old fracture. The right greater trochanter is poorly visualized secondary to artifact from the pat ient's right hip prosthesis. There does appear to be some cortical disruption anteriorly in the righ t greater trochanter (series 4, image 378). The bones are osteopenic. There are old bilateral sacra l insufficiency fractures. There is superior endplate compression fracture of L3 and L4. These were not present on the CT scan dated 06/20/2022. Soft Tissues: Normal. IMPRESSION: 1. Acute nondisplaced fracture of the right pubic bone lateral to the symphysis pubis. 2. Old right superior and inferior pubic rami fractures. 3. Question of a nondisplaced fracture involving the right greater trochanter. 4. Old bilateral sacral insufficiency fractures. 5. Age-indeterminate compression fracture of the superior endplates of L3 and L4. RADIATION DOSE DELIVERED: 300.38mGy.cm Total DLP 300.38mGy.cmTotal DLP 300.38mGy.cmTotal DLP DATA REPOSITORY: All CT scans at this facility are submitted to the National Radiology Data Registry (NRDR) Dose Index Registry (DIR) with the [employer] ([employer]). RADIATION OPTIMIZATION: All CT scans at this facility use at least one of these dose optimization te chniques: automated exposure control; mA and/or kV adjustment per patient size (includes targeted exa ms where dose is matched to clinical indication); or iterative reconstruction.
[2023-04-20 17:06] LABS: Bilirubin Negative (Negative); Blood Large (Negative); Clarity Turbid (Clear); Glucose Negative (Negative); Ketones Negative (Negative); Leukocyte Esterase Trace (Negative); Nitrite Negative (Negative); Specific Gravity 1.025 (1.005-1.025); Urobilinogen 0.2 mg/dL (Up to 0.2); pH 6.5 (5-8)
[2023-04-20 17:11] LABS: Bacteria Many HPF (Negative); C & S Indicated? Yes; Casts Negative LPF (Negative); Crystals Negative HPF (Negative); Epithelial Cells Few HPF (Negative); Mucus Negative (Negative); WBC >50 HPF (0-5)
--- NOTE | 2023-04-20 20:15 | DI.CT_ITS ---
Exam(s) CT HEAD WO EXAM: CT HEAD WO CLINICAL HISTORY: Repeat, Eval Subdural. TECHNIQUE: Imaging Protocol: Axial computed tomography images with coronal and sagittal reformatted images were created and reviewed COMPARISON: CT CT HEAD CERV SPINE FACIAL WO from 04/20/2023 FINDINGS: Ventricles and Extra axial spaces: Normal in size and morphology for the patient's age. Hemorrhage: There is no change in size or appearance of the right convex subdural hematoma. No new h emorrhage is seen. Cerebral parenchyma: Findings of chronic microvascular ischemic disease is again seen. Midline shift: None. Brainstem/Cerebellum: Normal. Calvarium: Normal. Visualized Paranasal sinuses/Mastoids: Clear. Soft Tissues: There is again seen a subcutaneous hematoma overlying the right parietal frontal bone. IMPRESSION: Stable right convexity subdural hematoma. RADIATION DOSE DELIVERED: 678.05mGy.cm Total DLP DATA REPOSITORY: All CT scans at this facility are submitted to the National Radiology Data Registry (NRDR) Dose Index Registry (DIR) with the [employer] (ACR). RADIATION OPTIMIZATION: All CT scans at this facility use at least one of these dose optimization te chniques: automated exposure control; mA and/or kV adjustment per patient size (includes targeted exa ms where dose is matched to clinical indication); or iterative reconstruction.
--- NOTE | 2023-04-20 21:46 | DI.VRAD_ITS ---
PROCEDURE INFORMATION: Exam: CT Head Without Contrast Exam date and time: 04/20/2023 8:51 PM Age: 82 years old Clinical indication: Other: Repeat, eval subdural TECHNIQUE: Imaging protocol: Computed tomography of the head without contrast. COMPARISON: CT HEAD CERV SPINE FACIAL WO 04/20/2023 2:20 PM FINDINGS: Brain: A previously seen right frontal approximate 4 mm extra-axial hematoma extends from the inferior aspect of the frontal lobe to the lower convexity level. It is unchanged in size or configuration since prior study. It remains slightly convex. No additional hemorrhage evident. Cortical volume loss unchanged. Scattered and coalescent areas of decreased attenuation are again noted in the deep periventricular white matter. Cerebral ventricles: No ventriculomegaly. Paranasal sinuses: Visualized sinuses are unremarkable. No fluid levels. Mastoid air cells: Visualized mastoid air cells are well aerated. Bones/joints: Severe degenerative change right temporomandibular joint. Soft tissues: Right frontal scalp hematoma again seen. IMPRESSION: No change right frontal small extra-axial hematoma. Dictated and Authenticated by: Debbie Zamora MD. Ordering:BRITTANY Rosenthal MD
--- NOTE | 2023-04-20 22:01 | DI.VRAD_ITS ---
PROCEDURE INFORMATION: Exam: CT Pelvis Without Contrast; Skeletal Exam date and time: 04/20/2023 8:59 PM Age: 82 years old Clinical indication: Injury or trauma; Fall; Other: Further eval rami FX; Prior surgery; Surgery date: 6+ months; Surgery type: Hip replacement TECHNIQUE: Imaging protocol: Computed tomography of the pelvis without contrast. Exam focused on the skeleton. COMPARISON: CT CHEST/ABD/PEL W 06/20/2022 10:37 AM FINDINGS: Bones/joints: Status post total right hip replacement. There are subtle, nondisplaced fractures of right superior pubic ramus, 1 at junction with acetabulum and the 2nd, at pubic symphysis. There are age-indeterminate invagination is through superior endplates of L3 and L4 vertebrae with sub cortical sclerotic change. Healed fracture of right inferior pubic ramus noted. Degenerative changes. Bones are demineralized, limiting evaluation for small, nondisplaced fractures. Subtle, obliquely oriented, nondisplaced fracture can not be excluded in right sacral ala, 07/29. Soft tissues: Unremarkable. IMPRESSION: 1. Acute fractures of the right superior pubic ramus. 2. Small, nondisplaced, insufficiency fracture can not be excluded in right sacral ala. 3. Age-indeterminate L3 and L4 vertebral body compression fractures. Correlate clinically as to acuity. Dictated and Authenticated by: Andres Eng MD. Ordering:REJI Tenorio MD
[2023-04-20] MEDS: Lidocaine 5% Patch 1 PATCH TP (22:32)
[2023-04-20] MEDS: Acetaminophen 325 MG TAB 650 MG PO (22:32)
--- NOTE | 2023-04-22 09:26 | NUR.NOTE ---
Accessed chart to determine if any antibiotics on discharge for urine culture. Nursing Note:
== END 2023-04-20 23:10 | disposition skilled nursing facility (03) ==
PROVIDERS: Nurse Practitioner Family; Emergency Provider Registered Nurse Emergency
DX: S32.511A Fracture of superior rim of right pubis, initial encounter for closed fracture (principal); S06.5XAA Traumatic subdural hemorrhage with loss of consciousness status unknown, initial encounter; E83.42 Hypomagnesemia; M48.56XA Collapsed vertebra, not elsewhere classified, lumbar region, initial encounter for fracture; G20.C Parkinsonism, unspecified; F02.80 Dementia in other diseases classified elsewhere, unspecified severity, without behavioral disturbance, psychotic disturbance, mood disturbance, and anxiety; I10 Essential (primary) hypertension; E78.5 Hyperlipidemia, unspecified; Z79.82 Long term (current) use of aspirin; Z96.641 Presence of right artificial hip joint; Z66 Do not resuscitate; W18.39XA Other fall on same level, initial encounter; Y93.01 Activity, walking, marching and hiking; Y92.098 Other place in other non-institutional residence as the place of occurrence of the external cause
CPT/HCPCS: 73552; 80053; 99285; 70450; 70486; 72125; 72170; 72192; 81003; 81015; 83735; 85025; 87086; 99284

== ENCOUNTER 2023-05-18 14:03 | Outpatient (REF) | payer MEDICARE, SELFPAY ==
[2023-05-18 15:52] LABS: Anion Gap 7.3 mmol/L (3-11); BUN 20 mg/dL (7-18); CO2 28.7 mmol/L (21.0-32.0); CREATININE 0.8 mg/dL (0.55-1.02); Calcium 9.2 mg/dL (8.5-10.1); Chloride 107 mmol/L (98-107); Estimated GFR 74.44 (mL/min/1.73m2); Glucose 127 mg/dL (74-106); Magnesium 1.5 mg/dL (1.8-2.4); Potassium 4.3 mmol/L (3.5-5.1); Sodium 143 mmol/L (136-145)
== END 2023-05-18 14:04 | disposition home or self-care (01) ==
LOC: LBN 14:03
PROVIDERS: Referring Provider Family Medicine; Visit Provider Family Medicine
DX: E83.42 Hypomagnesemia (principal); E87.6 Hypokalemia; E46 Unspecified protein-calorie malnutrition
CPT/HCPCS: 80048; 83735

== ENCOUNTER 2023-07-02 18:23 | Outpatient (REF) | payer MEDICARE, SELFPAY ==
[2023-07-02 19:21] LABS: Magnesium 1.7 mg/dL (1.8-2.4)
== END 2023-07-02 18:24 | disposition home or self-care (01) ==
LOC: LBN 18:23
PROVIDERS: Visit Provider Family Medicine
DX: R68.89 Other general symptoms and signs (principal)
CPT/HCPCS: 83735

== ENCOUNTER → 2023-08-27 15:08 | Outpatient (BNVA) | payer MEDICARE, SELFPAY | PROVIDERS: Visit Provider Psychiatry & Neurology Neurology | DX: G20.C Parkinsonism, unspecified (principal); F03.90 Unspecified dementia, unspecified severity, without behavioral disturbance, psychotic disturbance, mood disturbance, and anxiety | CPT/HCPCS: 99214 ==

== ENCOUNTER 2023-09-03 09:40 | Outpatient (REF) | payer MEDICARE, SELFPAY ==
[2023-09-03 18:52] LABS: Anion Gap 7.4 mmol/L (3-11); BUN 24 mg/dL (7-18); CO2 32.6 mmol/L (21.0-32.0); CREATININE 0.8 mg/dL (0.55-1.02); Calcium 9.9 mg/dL (8.5-10.1); Chloride 106 mmol/L (98-107); Estimated GFR 73.98 (mL/min/1.73m2); Glucose 86 mg/dL (74-106); Magnesium 1.7 mg/dL (1.8-2.4); Sodium 146 mmol/L (136-145); Vitamin B12 251 pg/mL (193-986)
== END 2023-09-03 09:41 | disposition home or self-care (01) ==
LOC: LBN 09:40
PROVIDERS: Visit Provider Family Medicine
DX: R26.89 Other abnormalities of gait and mobility (principal); I10 Essential (primary) hypertension; F03.90 Unspecified dementia, unspecified severity, without behavioral disturbance, psychotic disturbance, mood disturbance, and anxiety; G20.A1 Parkinson's disease without dyskinesia, without mention of fluctuations
CPT/HCPCS: 80048; 82607; 83735

== ENCOUNTER → 2023-10-23 10:15 | Outpatient (BNVA) | payer MEDICARE, SELFPAY | PROVIDERS: Visit Provider Psychiatry & Neurology Neurology | DX: G20.C Parkinsonism, unspecified (principal); F03.90 Unspecified dementia, unspecified severity, without behavioral disturbance, psychotic disturbance, mood disturbance, and anxiety | CPT/HCPCS: 99214 ==

== ENCOUNTER 2023-11-08 18:09 | Outpatient (REF) | payer MEDICARE, SELFPAY ==
[2023-11-08 15:59] LABS: Bilirubin Negative (Negative); Blood Negative (Negative); Clarity Cloudy (Clear); Glucose Negative (Negative); Ketones Trace mg/dL (Negative); Leukocyte Esterase Small (Negative); Nitrite Negative (Negative); Specific Gravity 1.015 (1.005-1.025); Urobilinogen 0.2 mg/dL (Up to 0.2); pH 8.5 (5-8)
[2023-11-08 16:10] LABS: Bacteria Many HPF (Negative); C & S Indicated? C&S Done As Ordered; Casts Negative LPF (Negative); Crystals Moderate Triple Phos HPF (Negative); Epithelial Cells Few HPF (Negative); Mucus Trace (Negative); Other Cells Rare Renal (Negative); RBC Negative HPF (0-2)
== END 2023-11-08 18:10 | disposition home or self-care (01) ==
LOC: LBN 18:09
PROVIDERS: PCP Family Medicine; Visit Provider Family Medicine
DX: R35.0 Frequency of micturition (principal); R82.89 Other abnormal findings on cytological and histological examination of urine
CPT/HCPCS: 81003; 81015; 87086

== ENCOUNTER 2023-11-24 10:01 | Emergency (ER) | payer MEDICARE, SELFPAY ==
[2023-11-24] VITALS (49 sets, daily range): BP systolic 109–150; BP diastolic 59–90; PULSE 68–100; RESP 14–24; TEMP 36.6–37; O2SAT 89–95
--- NOTE | 2023-11-24 10:00 | DI.RAD_ITS ---
Exam(s) XR HIP LT COMPLETE AP PELVIS EXAM: XR HIP LT COMPLETE AP PELVIS CLINICAL HISTORY: falls, L hip pain. TECHNIQUE: 2D digital imaging was performed. COMPARISON: No exams were available for comparison FINDINGS: 3 views There is a displaced subcapital fracture of the left hip. No osseous lesions. There is a right hip prosthesis. Pubic rami exhibit no acute findings. Probable healed fractures of the right pubic rami. Left pubic rami unremarkable. SI joints unremarkable IMPRESSION: There is an acute displaced subcapital fracture of the left hip. There is a right hip prosthesis. DATA REPOSITORY: RADIATION DOSE DELIVERED:
--- NOTE | 2023-11-24 10:00 | DI.CT_ITS ---
Exam(s) CT HEAD CERVICAL SPINE WO EXAM: CT HEAD CERVICAL SPINE WO CLINICAL HISTORY: multiple falls. TECHNIQUE: Imaging Protocol: Axial computed tomography images with coronal and sagittal reformatted images were created and reviewed COMPARISON: CT CT HEAD WO from 04/20/2023 FINDINGS: BRAIN: There are no skull fractures nor fluid in the visualized paranasal sinuses. There is no evidence of intracranial hemorrhage, mass effect, or shift of midline structures. There are no extra-axial fluid collections. The ventricles are not enlarged or shifted and there is no blo od within the ventricular system nor within the basal cisterns. Small nonhemorrhagic lacunar infarcts are noted in the external capsules bilaterally. Unchanged from 04/20/2023. Vascular calcifications the skull base is noted including in both vertebral arteries. CERVICAL SPINE: There is no evidence of fracture nor listhesis. No significant prevertebral soft tissue swelling. Multilevel facet arthropathy evident. There is widening of the anterior disc spaces at the lower 3 cervical levels. Some narrowing of the posterior disc space at these levels There is no significant facet joint malalignment. No significant osseous lesions evident. IMPRESSION: No acute intracranial findings on this noninfused CT scan of the brain. No evidence of cervical spine fracture, malalignment, nor acute compromise of the cervical spinal can al. RADIATION DOSE DELIVERED: 1,061.37mGy.cm Total DLP DATA REPOSITORY: All CT scans at this facility are submitted to the National Radiology Data Registry (NRDR) Dose Index Registry (DIR) with the [employer] ([employer]). RADIATION OPTIMIZATION: All CT scans at this facility use at least one of these dose optimization te chniques: automated exposure control; mA and/or kV adjustment per patient size (includes targeted exa ms where dose is matched to clinical indication); or iterative reconstruction.
--- NOTE | 2023-11-24 10:15 | DI.CT_ITS ---
Exam(s) CT THORACIC LUMBAR SPINE WO EXAM: CT THORACIC LUMBAR SPINE WO CLINICAL HISTORY: multiple falls, hx osteoporosis fx. TECHNIQUE: Imaging Protocol: Axial computed tomography images with coronal and sagittal reformatted images were created and reviewed. CONTRAST MATERIAL: Intravenous: Omnipaque 350 Contrast volume:structured data in ml Contrast route:I V - Oral: yes / no COMPARISON: No exams were available for comparison FINDINGS: Bones: There are compression fractures of T2, T4, T5, T6, T8, and T9. These are probably not acute.. There is resultant kyphosis in the upper thoracic spine. Soft tissues: There does not appear to be acute compromise of the spinal canal. No obvious large dis c herniations are noted. No obvious foraminal stenosis. IMPRESSION: Multilevel compression fractures T2, T4-T5, T6, T8, and T9 vertebral bodies. Resultant kyphosis. No prominent canal compromise seen. RADIATION DOSE DELIVERED: 1,124.33mGy.cm Total DLP DATA REPOSITORY: All CT scans at this facility are submitted to the National Radiology Data Registry (NRDR) Dose Index Registry (DIR) with the [employer] ([employer]). RADIATION OPTIMIZATION: All CT scans at this facility use at least one of these dose optimization te chniques: automated exposure control; mA and/or kV adjustment per patient size (includes targeted exa ms where dose is matched to clinical indication); or iterative reconstruction.
--- NOTE | 2023-11-24 10:17 | ED.GENADUL_ITS ---
Discharge Plan Disposition Patient Disposition: Transfer-Acute Inpatient Care Specific Acute Inpt Facility: [facility] Condition: Stable Discharge Details Clinical Impression: Fracture of left hip Primary Care Provider: Kerry Sanchez ED Provider: Maurisio Montoya Home Meds and New Rx's Prescriptions: No Action sennosides-docusate sodium [Senna with Docusate Sodium] 8.6-50 mg tablet 1 tab-cap PO QHS mirtazapine 7.5 mg tablet 7.5 mg PO QHS magnesium hydroxide [Mitchell Milk of Magnesia] 400 mg/5 mL suspension 5 ml PO DAILY PRN aspirin [Adult Aspirin Regimen] 81 mg tablet,delayed release (DR/EC) 81 mg PO DAILY Fleet Enema 19-7 gram/118 mL enema 118 ml GA ONCE potassium chloride 20 MEQ packet 20 meq PO DAILY ascorbic acid (vitamin C) [Vitamin C] 500 MG tablet 1 tab PO DAILY One Daily Men's 50+ 1 EACH tablet 1 tab PO DAILY Caltrate 600-D Plus Minerals 1 EACH tablet 1 tab PO DAILY docusate sodium [Colace] 100 MG capsule 100 mg PO DAILY acetaminophen 500 mg Tablet 500 mg PO Q6H PRN fluoxetine 20 mg Tablet 30 mg PO DAILY melatonin 5 mg Tablet 5 mg PO HS PRN magnesium chloride [Mag 64] 64 mg tablet,delayed release (DR/EC) 64 mg PO DAILY Qty: 10 0RF potassium chloride 20 mEq/15 mL liquid 10 meq PO DAILY Qty: 450 0RF carbidopa-levodopa 25-100 mg tablet 1.5 tab PO QID cyanocobalamin (vitamin B-12) 1,000 mcg capsule 1,000 mcg PO QDAY magnesium oxide 400 mg magnesium capsule 400 mg PO BID HPI General Date/Time Provider Initiated Documentation: 11/24/23 10:08 . HPI Narrative: 83 year-old female presents to ED today by EMS with a chief complaint of multiple falls while at rehab facility across the street- most recent fall being on Nov.07, has been relatively bed bound since then, complaining of L hip pain, on a fall before that she hit her head but was cleared by facilities provider with onset for weeks. Per staff she is mentating at her baseline with dementia and Parkinsons. Quality described as L hip pain, no radiation to gross deformity, though she does have pain when EMS attempted to rotate her leg while getting her onto stretcher, denies neck pain, visual changes, chest pain, fever, cough, abdominal pain. Severity is described as mild. Palliating factors include nothing attempted. Provoking factors include movement of L lower extremity. Patient not anticoagulated. Related Data Home Medications ?Medication ?Instructions ?Recorded ?Confirmed ascorbic acid (vitamin C) 500 mg 1 tab PO DAILY 08/20/13 11/24/23 tablet (Vitamin C) calcium 600 mg-D3 800 unit-mag11 1 tab PO DAILY 08/20/13 11/24/23 50 iq-pqag-qazsyy-natalya-s.borat tablet (Caltrate 600-D Plus Minerals) multivitamin with minerals (One 1 tab PO DAILY 08/20/13 11/24/23 Daily Men's 50+ tablet) potassium chloride 20 mEq oral 20 meq PO DAILY 08/20/13 11/24/23 packet docusate sodium 100 mg capsule 100 mg PO DAILY 08/25/13 11/24/23 (Colace) acetaminophen 500 mg tablet 500 mg PO Q6H PRN 06/20/22 11/24/23 fluoxetine 20 mg tablet 30 mg PO DAILY 06/20/22 11/24/23 magnesium chloride 64 mg 64 mg PO DAILY #10 tabs 06/20/22 11/24/23 (magnesium chloride) tablet,delayed release (Mag 64) melatonin 5 mg tablet 5 mg PO HS PRN 06/20/22 11/24/23 potassium chloride 20 mEq/15 mL 10 meq (7.5 mL) PO DAILY #450 mL 06/20/22 11/24/23 oral liquid aspirin 81 mg tablet,delayed 81 mg PO DAILY 07/05/22 11/24/23 release (Adult Aspirin Regimen) magnesium hydroxide 400 mg/5 mL 5 ml PO DAILY PRN 07/05/22 11/24/23 oral suspension (Mitchell Milk of Magnesia) sodium phosphates 19 gram-7 118 ml GA ONCE 07/05/22 11/24/23 gram/118 mL enema (Fleet Enema) mirtazapine 7.5 mg tablet 7.5 mg PO QHS 12/03/22 11/24/23 carbidopa 25 mg-levodopa 100 mg 1.5 tab PO QID 10/23/23 11/24/23 tablet sennosides 8.6 mg-docusate sodium 1 tab-cap PO QHS 10/23/23 11/24/23 50 mg tablet (Senna with Docusate Sodium) cyanocobalamin (vitamin B-12) 1,000 mcg PO QDAY 11/24/23 11/24/23 1,000 mcg capsule magnesium oxide 400 mg PO BID 11/24/23 11/24/23 Previous Rx's ?Medication ?Instructions ?Recorded magnesium chloride 64 mg 64 mg PO DAILY #10 tabs 06/20/22 (magnesium chloride) tablet,delayed release (Mag 64) potassium chloride 20 mEq/15 mL 10 meq (7.5 mL) PO DAILY #450 mL 06/20/22 oral liquid Allergies Allergy/AdvReac Type Severity Reaction Status Date / Time Penicillins Allergy Unknown Other (See Verified 11/24/23 10:15 Comment) General Stated Complaint: Orthopedic VANDANA: 3 Review of Systems All systems reviewed & are unremarkable except as noted in HPI and below Exam Narrative Exam Narrative: GENERAL APPEARANCE: Well-nourished, non-toxic, awake and alert, atraumatic, no acute distress. SKIN: Warm, pink, dry, intact, without rashes/lesions/ulcerations. HEAD: Normocephalic, atraumatic, normal hair distribution for gender/age. EYES: Normal conjunctiva, no exudates on lids/lashes. ENT: Nares patent, no circumoral cyanosis, no facial swelling NECK: Supple, trachea midline, painless cervical ROM. LUNGS/CHEST: Lungs CTA bilaterally, non-labored respirations, normal A/P diameter, symmetrical expansion, no chest wall deformity HEART (CV/PV): Regular rate and rhythm without murmur, no peripheral edema, no JVD. ABDOMEN: Soft, non-distended, no guarding. MSK: Normal ROM, no swelling/deformity to bilateral UEs or LEs, moving all extremities without weakness, no cyanosis, spine midline without tenderness, normal curvature. NEURO: Mental Status AAOx4 - alert to person, place, time, events No facial droop, no forehead involvement. Motor: No focal weakness - strength 5/5 in bilateral UEs and LEs, proximal and distal, symmetric. Sensory: sensation intact to light touch globally. Gait normal: patient ambulated without ataxia into ED room. PSYCH: euthymic, cooperative, pleasant, appropriate speech Course Vital Signs Vital signs: Vital Signs Temperature 36.6 C 11/24/23 10:10 Pulse 72 11/24/23 10:10 Respiratory Rate 14 11/24/23 10:10 Blood Pressure 131/73 11/24/23 10:10 Pulse Oximetry 95 11/24/23 10:10 Temperature 36.6 C 11/24/23 10:10 Pulse 72 11/24/23 10:10 Respiratory Rate 14 11/24/23 10:10 Blood Pressure 131/73 11/24/23 10:10 Pulse Oximetry 95 11/24/23 10:10 Oxygen Delivery Method Room Air 11/24/23 10:10 Oxygen Flow Rate 0 11/24/23 10:10 Pain Level 6 11/24/23 10:10 Medical Decision Making This dictation utilizes [id number] dictation software and may contain unedited grammatical errors. 83 year-old female presents to ED today by EMS with a chief complaint of multip le falls while at rehab facility across the street- most recent fall being on Nov.07, has been relatively bed bound since then, complaining of L hip pain, on a fall before that she hit her head but was cleared by facilities provider with onset for weeks. Per staff she is mentating at her baseline with dementia and Parkinsons. Quality described as L hip pain, no radiation to gross deformity, though she does have pain when EMS attempted to rotate her leg while getting her onto stretcher, denies neck pain, visual changes, chest pain, fever, cough, abdominal pain. Severity is described as mild. Palliating factors include nothing attempted. Provoking factors include movement of L lower extremity. Patients' medical history: Chronic vertebral fractures of thoracic vertebrae, osteoporosis, pathological fracture. Family and social history: lives at rehab facility across the street. Pertinent exam findings / vital signs include no midline vertebral tenderness/crepitus/step-offs, resting in right lateral recumbent position with left hip rotated slightly inward without overt shortening or leg length discrepancy, tenderness around the left greater trochanter, benign abdomen, no rib or chest wall tenderness, answering questions appropriately. Differential / pathologies of concern include fracture, ICH, vertebral fracture, UTI, rhabdomyolysis. Diagnostic studies of: -CT head, CT C-T-L-spine without contrast, CBC, CMP, CK, UA, troponin I. XR L hip, L knee, XR Chest. -CBC shows no leukocytosis, no anemia -CMP benign, mild hypokalemia -Trop negative -CK negative -UA pending at time of sign-out -CTs negative, shows chronic old vertebral fractures -XR knee negative -XR chest without PNA -XR Hip shows displaced subcapital femoral neck fx Interventions of: -Consult [facility] Ortho as we have no ortho coverage until 11/26 - family would like surgical fixation if possible for improved quality of life. They understand the implications, discussed alternatives if Ortho deemed not surgical, including admit vs comfort care vs [facility] ortho repeat consult on 11/26. -Spoke with [facility] Ortho Dr. Eddy @ 1340 - states needs transfer for L hemiarthroplasty, would be [facility] medicine admit for surgical management by ortho team, added L femur film per their request -Spoke with [facility] Hospitalist Service Dr. Marcial at 1410 - accepts for admission/transfer, awaiting bed. ED Course/Assessment/Plan: 83-year-old female suffered a fall weeks ago and has been bed ridden at rehab facility across the street for weeks. Sent over for persistent left hip pain, have an obvious internal rotation with leg length discrepancy, noted severe subcapital neck fracture on x-ray likely needs left hemiarthroplasty. Per family they would like her operated on as she will likely have a better quality of life, without the procedure she would not walk again. Patient is resting comfortably here in the ED and is neurovascular intact distal to the injury, has been n.p.o. throughout her visit here while awaiting definitive surgical timeline. Findings not consistent with neurovascular compromise, other trauma, altered mental status. Disposition of Fracture of Left Hip. Patient verbalized understanding of the plan and return to ED criteria and engaged in shared decision making. Medical Records Medical records reviewed: Yes I reviewed the patient's medical records. Imaging Data Radiologic Study: Attestation: I personally reviewed and interpreted this imaging study as follows: Imaging: CT Scan Radiologist's impression: Exam: CT Head Without Contrast Exam date and time: 11/24/2023 10:23 AM Age: 83 years old Clinical indication: Other: Multiple falls TECHNIQUE: Imaging protocol: Computed tomography of the head without contrast. Radiation optimization: All CT scans at this facility use at least one of these dose optimization techniques: automated exposure control; mA and/or kV adjustment per patient size (includes targeted exams where dose is matched to clinical indication); or iterative reconstruction. COMPARISON: CT HEAD WO 04/20/2023 8:51 PM FINDINGS: Brain:There is ventricular and cortical sulcal prominence consistent with central and cortical atrophy. There is no acute hemorrhage mass or shift.There is patchy low attenuation involving the periventricular and subcortical white matter nonspecific but likely small vessel ischemic change/microangiopathy. There is no evidence of an acute cortical or major vascular territory infarct. No abnormal extra-axial collections are identified. Intracranial vascular calcification is noted. There is no hyperdense intravascular thrombus. Cerebral ventricles: Ventricular size is stable. There is no significant hydrocephalus. Paranasal sinuses: There is no significant sinus opacification or fluid level Mastoid air cells: No significant mastoid opacification Orbital cavities: The patient has had prior lens replacement Bones: There is no acute bony abnormality. Soft tissues: There is no significant subcutaneous abnormality IMPRESSION: No new or acute findings on noncontrast CT of the head. Findings suggestive of central, cortical atrophy, microangiopathy. PROCEDURE INFORMATION: Exam: CT Cervical Spine Without Contrast Exam date and time: 11/24/2023 10:23 AM Age: 83 years old Clinical indication: Other: Multiple falls TECHNIQUE: Imaging protocol: Computed tomography of the cervical spine without contrast. Radiation optimization: All CT scans at this facility use at least one of these dose optimization techniques: automated exposure control; mA and/or kV adjustment per patient size (includes targeted exams where dose is matched to clinical indication); or iterative reconstruction. COMPARISON: CT HEAD CERV SPINE FACIAL WO 04/20/2023 2:20 PM FINDINGS: Bones: There is dextroconvex cervical scoliosis, exaggeration of the cervical lordosis. The bony structures are osteopenic. There is no new or acute fracture. There is no significant decrease of vertebral body height. There is no new or acute bony abnormality identified. There is multilevel disc space narrowing. There are disc osteophyte complexes spondylitic changes of the endplates, uncovertebral and facet arthropathy. No high-grade stenosis or cord compression is visualized on the images submitted. Lungs: There is pleural-parenchymal scarring noted at the lung apices. Vasculature: Vascular calcification is seen at the carotid bifurcations Soft tissues: There is no new soft tissue mass in the neck. Other findings: Exam degraded by patient motion. IMPRESSION: 1. Exam degraded by patient motion 2. Scoliosis, cervical spondylosis, disc disease. No acute findings. Dictated and Authenticated by: Joann Marquis MD. Radiologic Study #2: Attestation: I personally reviewed and interpreted this imaging study as follows: Imaging: CT Scan Radiologist's impression: Exam: CT Thoracic Spine Without Contrast Exam date and time: 11/24/2023 10:30 AM Age: 83 years old Clinical indication: Other: Multiple falls, HX osteoporosis \T\ FX TECHNIQUE: Imaging protocol: Computed tomography of the thoracic spine without contrast. Radiation optimization: All CT scans at this facility use at least one of these dose optimization techniques: automated exposure control; mA and/or kV adjustment per patient size (includes targeted exams where dose is matched to clinical indication); or iterative reconstruction. COMPARISON: CT HEAD CERVICAL SPINE WO 11/24/2023 10:23 AM FINDINGS: Bones/joints: Compression fractures of unknown age T2, T4, T5, T6, T8, T9. Incompletely healed right rib fractures Soft tissues: Unremarkable. Lungs: Moderate panlobular emphysematous changes Pleural spaces: Small bilateral pleural effusions Heart: Severe mitral valve calcification. IMPRESSION: Compression fractures of unknown age T2, T4, T5, T6, T8, T9. PROCEDURE INFORMATION: Exam: CT Lumbar Spine Without Contrast Exam date and time: 11/24/2023 10:30 AM Age: 83 years old Clinical indication: Other: Multiple falls, HX osteoporosis \T\ FX TECHNIQUE: Imaging protocol: Computed tomography of the lumbar spine without contrast. Radiation optimization: All CT scans at this facility use at least one of these dose optimization techniques: automated exposure control; mA and/or kV adjustment per patient size (includes targeted exams where dose is matched to clinical indication); or iterative reconstruction. COMPARISON: CT PELVIC WO 04/20/2023 8:59 PM FINDINGS: Bones/joints: Six ribless lumbar vertebral bodies Compression fractures of unknown age L4 on L5 . Mild broad-based disc bulge at L3/L4 and L4/L5 and L5/L6 consistent with degenerative disc. Soft tissues: Unremarkable. IMPRESSION: 1. Six ribless lumbar vertebral bodies Compression fractures of unknown age L4 on L5 2. Mild broad-based disc bulge at L3/L4 and L4/L5 and L5/L6 consistent with degenerative disc disease. Dictated and Authenticated by: Gm Kapoor MD. Radiologic Study #3: Attestation: I personally reviewed and interpreted this imaging study as follows: Imaging: X-Ray Radiologist's impression: Exam: XR Left Knee Exam date and time: 11/24/2023 10:44 AM Age: 83 years old Clinical indication: Other: L knee bruise TECHNIQUE: Imaging protocol: Radiologic exam of the left knee. Views: 3 views. COMPARISON: No relevant prior studies available. FINDINGS: Bones/joints: Mild Tricompartmental joint space narrowing and osteophyte formation consistent with degenerative changes. There is no evidence of acute fracture.There is no evidence of malalignment or dislocation. Soft tissues: Normal. IMPRESSION: 1. Mild Tricompartmental joint space narrowing and osteophyte formation consistent with degenerative changes. 2. There is no evidence of acute fracture.There is no evidence of malalignment or dislocation. Dictated and Authenticated by: Gm Kapoor MD. Radiologic Study #4: Attestation: I personally reviewed and interpreted this imaging study as follows: Imaging: X-Ray Radiologist's impression: Exam: XR Left Hip Exam date and time: 11/24/2023 10:42 AM Age: 83 years old Clinical indication: Other: Falls, L hip pain TECHNIQUE: Imaging protocol: Radiologic exam of the left hip. Views: 2 or 3 views hip with pelvis when performed. COMPARISON: CT PELVIC WO 04/20/2023 8:59 PM FINDINGS: Bones/joints: Right hip arthroplasty without evidence of complication. Displaced subcapital femoral neck fracture of the left hip. Soft tissues: Soft tissue swelling of the left hip IMPRESSION: 1. Right hip arthroplasty without evidence of complication. 2. Displaced subcapital femoral neck fracture of the left hip. Dictated and Authenticated by: Gm Kapoor MD. Radiologic Study #5: Attestation: I personally reviewed and interpreted this imaging study as follows: Imaging: X-Ray Radiologist's impression: Exam: XR Chest Exam date and time: 11/24/2023 10:57 AM Age: 83 years old Clinical indication: Other: Pre op TECHNIQUE: Imaging protocol: Radiologic exam of the chest. Views: 1 view. COMPARISON: CR XR CHEST 2V PA LATERAL 03/18/2023 3:04 PM FINDINGS: Lungs: Hyperexpanded lung beck consistent with COPD. No focal consolidation. Pleural spaces: Unremarkable. No pleural effusion. No pneumothorax. Heart/Mediastinum: Mild cardiomegaly Bones/joints: Severe deformity of the cervical and thoracic spine Other findings: The patient is rotated to the right IMPRESSION: Hyperexpanded lung beck consistent with COPD. No focal consolidation. Dictated and Authenticated by: Gm Kapoor MD. Lab Data Lab results reviewed: Yes I reviewed the patient's lab results. Labs: Laboratory Tests Range/Units 11/24/23 11:13 WBC (4.4-10.8) 10^3/uL 8.42 RBC (3.93-5.22) 10^6/uL 4.51 Hgb (11.2-15.7) g/dL 14.1 Hct (36.0-46.0) % 43.1 MCV (80-95) fL 96 H MCH (27.0-33.0) pg 31.3 MCHC (32.0-36.0) % 32.7 RDW (11.7-14.6) % 14.2 Plt Count (130-400) 10^3/uL 137 MPV (8.0-11.0) fL 12.1 H Immature Gran % % 0.4 Neutrophils % % 76.5 Lymphocytes % % 12.5 Monocytes % % 8.7 Eosinophils % % 1.2 Basophils % % 0.7 Nucleated RBC % (0.0-0.3) % 0.0 Absolute Neutrophils (1.2-6.7) 10^3/uL 6.45 Absolute Lymphocytes (1.2-3.4) 10^3/uL 1.05 L Absolute Monocytes (0.1-0.8) 10^3/uL 0.73 Absolute Eosinophils (0.0-0.7) 10^3/uL 0.10 Absolute Basophils (0.0-0.2) 10^3/uL 0.06 Sodium (136-145) mmol/L 140 Potassium (3.5-5.1) mmol/L 3.1 L Chloride (98-107) mmol/L 103 Carbon Dioxide (21.0-32.0) mmol/L 29.4 Anion Gap (3-11) mmol/L 7.6 BUN (7-18) mg/dL 27 H Creatinine (0.55-1.02) mg/dL 0.9 Est GFR (CKD-EPI 2020) (mL/min/1.73m2) 64.23 Glucose (74-106) mg/dL 93 Calcium (8.5-10.1) mg/dL 9.1 Total Bilirubin (0.2-1.0) mg/dL 0.65 AST (15-37) U/L 17 ALT (14-59) U/L 8 L Alkaline Phosphatase (46-116) U/L 77 Creatine Kinase (26-192) U/L 88 Troponin I (<or=51) ng/L 13 Total Protein (6.4-8.2) g/dL 6.6 Albumin (3.4-5.0) g/dL 2.8 L Quality:SDOH Health Related Social Needs: No Data to Display PFSH All Active Problems (Updated 11/24/23 @ 13:08 by BHARGAV Gonzalez) Fracture of left hip (Acute) Parkinson disease (Chronic) Dementia (Chronic) Medical History Wedge compression fracture of eighth thoracic vertebra Wedge compression fracture of fourth thoracic vertebra Wedge compression fracture of third thoracic vertebra Wedge compression fracture of first thoracic vertebra Constipation H/O cardiac murmur Hyperlipidemia Age related osteoporosis Pathological fracture Diverticulosis of intestine, part unspecified, without perforation or abscess without bleeding Protein calorie malnutrition Rheumatic mitral insufficiency Cardiac murmur, unspecified Major depressive disorder, recurrent, moderate Essential (primary) hypertension Surgical History S/P hysterectomy S/P cholecystectomy S/P cataract extraction S/P right hip fracture Social History Smoking/Tobacco Use Status: Never Smoking risk assessment performed?: Yes Alcohol Intake: never Drug use: Never Substance use type: does not use Housing: alf Number of Children: 2 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 No complications in ED. Trauma took place on 9.6, has been bedridden for weeks. Resting comfortably in R lateral recumbent position. Last updated by Maurisio Montoya PA at 11/24/23 14:36
--- NOTE | 2023-11-24 11:01 | DI.RAD_ITS ---
Exam(s) XR CHEST 1V IN DI DEPT EXAM: XR CHEST 1V IN DI DEPT CLINICAL HISTORY: pre-op. TECHNIQUE: 2D digital imaging was performed. COMPARISON: CR XR CHEST 2V PA LATERAL from 03/18/2023 CR XR FEMUR LT from 11/24/2023 FINDINGS: Single AP portable view. Patient is rotated towards the right. There is cardiomegaly. Calcified mitral valve. No obvious infiltrates nor pleural effusions. No obvious fractures. IMPRESSION: No acute pulmonary findings on this single AP portable view of the chest. Cardiomegaly. No pulmonary edema. DATA REPOSITORY: RADIATION DOSE DELIVERED:
--- NOTE | 2023-11-24 11:01 | DI.RAD_ITS ---
Exam(s) XR KNEE LT 3V AP,LAT,SAM EXAM: XR KNEE LT 3V AP,LAT,SAM CLINICAL HISTORY: L knee bruise. TECHNIQUE: 2D digital imaging was performed. COMPARISON: No exams were available for comparison FINDINGS: 3 views No evidence of fracture nor knee joint effusion. No significant joint space narrowing evident in the left knee. Bone density is age-appropriate. No osseous lesions IMPRESSION: No significant radiograph findings in the left knee. Please note that this patient has an acute displaced subcapital fracture of the ipsilateral-left hip. DATA REPOSITORY: RADIATION DOSE DELIVERED:
[2023-11-24 11:32] LABS: Abs Immature Grans 0.03 10^3/uL (0.0-0.06); Absolute Basophil Count 0.06 10^3/uL (0.0-0.2); Absolute Lymphocyte Count 1.05 10^3/uL (1.2-3.4); Absolute Monocyte Count 0.73 10^3/uL (0.1-0.8); Absolute Neutrophil Count 6.45 10^3/uL (1.2-6.7); Basophils % 0.7 %; Eosinophils % 1.2 %; HCT 43.1 % (36.0-46.0); HGB 14.1 g/dL (11.2-15.7); Immature Grans % 0.4 %; Lymphocytes % 12.5 %; MCH 31.3 pg (27.0-33.0); MCHC 32.7 % (32.0-36.0); MCV 96 fL (80-95); MPV 12.1 fL (8.0-11.0); Monocytes % 8.7 %; Neutrophils % 76.5 %; Platelet Count 137 10^3/uL (130-400); RBC 4.51 10^6/uL (3.93-5.22); RDW 14.2 % (11.7-14.6); RDW-SD 49.8 fL; WBC 8.42 10^3/uL (4.4-10.8)
[2023-11-24 11:46] LABS: ALT 8 U/L (14-59); AST 17 U/L (15-37); Albumin 2.8 g/dL (3.4-5.0); Alkaline Phosphatase 77 U/L (46-116); Anion Gap 7.6 mmol/L (3-11); BUN 27 mg/dL (7-18); Bilirubin, Total 0.65 mg/dL (0.2-1.0); CO2 29.4 mmol/L (21.0-32.0); CREATININE 0.9 mg/dL (0.55-1.02); Calcium 9.1 mg/dL (8.5-10.1); Chloride 103 mmol/L (98-107); Creatine Kinase 88 U/L (26-192); Estimated GFR 64.23 (mL/min/1.73m2); Glucose 93 mg/dL (74-106); Potassium 3.1 mmol/L (3.5-5.1); Sodium 140 mmol/L (136-145); Total Protein 6.6 g/dL (6.4-8.2); Troponin I 13 ng/L (<or=51)
--- NOTE | 2023-11-24 12:04 | DI.VRAD_ITS ---
PROCEDURE INFORMATION: Exam: CT Head Without Contrast Exam date and time: 11/24/2023 10:23 AM Age: 83 years old Clinical indication: Other: Multiple falls TECHNIQUE: Imaging protocol: Computed tomography of the head without contrast. Radiation optimization: All CT scans at this facility use at least one of these dose optimization techniques: automated exposure control; mA and/or kV adjustment per patient size (includes targeted exams where dose is matched to clinical indication); or iterative reconstruction. COMPARISON: CT HEAD WO 04/20/2023 8:51 PM FINDINGS: Brain:There is ventricular and cortical sulcal prominence consistent with central and cortical atrophy. There is no acute hemorrhage mass or shift.There is patchy low attenuation involving the periventricular and subcortical white matter nonspecific but likely small vessel ischemic change/microangiopathy. There is no evidence of an acute cortical or major vascular territory infarct. No abnormal extra-axial collections are identified. Intracranial vascular calcification is noted. There is no hyperdense intravascular thrombus. Cerebral ventricles: Ventricular size is stable. There is no significant hydrocephalus. Paranasal sinuses: There is no significant sinus opacification or fluid level Mastoid air cells: No significant mastoid opacification Orbital cavities: The patient has had prior lens replacement Bones: There is no acute bony abnormality. Soft tissues: There is no significant subcutaneous abnormality IMPRESSION: No new or acute findings on noncontrast CT of the head. Findings suggestive of central, cortical atrophy, microangiopathy. PROCEDURE INFORMATION: Exam: CT Cervical Spine Without Contrast Exam date and time: 11/24/2023 10:23 AM Age: 83 years old Clinical indication: Other: Multiple falls TECHNIQUE: Imaging protocol: Computed tomography of the cervical spine without contrast. Radiation optimization: All CT scans at this facility use at least one of these dose optimization techniques: automated exposure control; mA and/or kV adjustment per patient size (includes targeted exams where dose is matched to clinical indication); or iterative reconstruction. COMPARISON: CT HEAD CERV SPINE FACIAL WO 04/20/2023 2:20 PM FINDINGS: Bones: There is dextroconvex cervical scoliosis, exaggeration of the cervical lordosis. The bony structures are osteopenic. There is no new or acute fracture. There is no significant decrease of vertebral body height. There is no new or acute bony abnormality identified. There is multilevel disc space narrowing. There are disc osteophyte complexes spondylitic changes of the endplates, uncovertebral and facet arthropathy. No high-grade stenosis or cord compression is visualized on the images submitted. Lungs: There is pleural-parenchymal scarring noted at the lung apices. Vasculature: Vascular calcification is seen at the carotid bifurcations Soft tissues: There is no new soft tissue mass in the neck. Other findings: Exam degraded by patient motion. IMPRESSION: 1. Exam degraded by patient motion 2. Scoliosis, cervical spondylosis, disc disease. No acute findings. Dictated and Authenticated by: Joann Marquis MD. Ordering:JATIN Forde MD
--- NOTE | 2023-11-24 12:36 | DI.VRAD_ITS ---
PROCEDURE INFORMATION: Exam: CT Thoracic Spine Without Contrast Exam date and time: 11/24/2023 10:30 AM Age: 83 years old Clinical indication: Other: Multiple falls, HX osteoporosis \T\ FX TECHNIQUE: Imaging protocol: Computed tomography of the thoracic spine without contrast. Radiation optimization: All CT scans at this facility use at least one of these dose optimization techniques: automated exposure control; mA and/or kV adjustment per patient size (includes targeted exams where dose is matched to clinical indication); or iterative reconstruction. COMPARISON: CT HEAD CERVICAL SPINE WO 11/24/2023 10:23 AM FINDINGS: Bones/joints: Compression fractures of unknown age T2, T4, T5, T6, T8, T9. Incompletely healed right rib fractures Soft tissues: Unremarkable. Lungs: Moderate panlobular emphysematous changes Pleural spaces: Small bilateral pleural effusions Heart: Severe mitral valve calcification. IMPRESSION: Compression fractures of unknown age T2, T4, T5, T6, T8, T9. PROCEDURE INFORMATION: Exam: CT Lumbar Spine Without Contrast Exam date and time: 11/24/2023 10:30 AM Age: 83 years old Clinical indication: Other: Multiple falls, HX osteoporosis \T\ FX TECHNIQUE: Imaging protocol: Computed tomography of the lumbar spine without contrast. Radiation optimization: All CT scans at this facility use at least one of these dose optimization techniques: automated exposure control; mA and/or kV adjustment per patient size (includes targeted exams where dose is matched to clinical indication); or iterative reconstruction. COMPARISON: CT PELVIC WO 04/20/2023 8:59 PM FINDINGS: Bones/joints: Six ribless lumbar vertebral bodies Compression fractures of unknown age L4 on L5 . Mild broad-based disc bulge at L3/L4 and L4/L5 and L5/L6 consistent with degenerative disc. Soft tissues: Unremarkable. IMPRESSION: 1. Six ribless lumbar vertebral bodies Compression fractures of unknown age L4 on L5 2. Mild broad-based disc bulge at L3/L4 and L4/L5 and L5/L6 consistent with degenerative disc disease. Dictated and Authenticated by: Gm Kapoor MD. Ordering:JATIN Forde MD
--- NOTE | 2023-11-24 12:37 | DI.VRAD_ITS ---
PROCEDURE INFORMATION: Exam: XR Left Knee Exam date and time: 11/24/2023 10:44 AM Age: 83 years old Clinical indication: Other: L knee bruise TECHNIQUE: Imaging protocol: Radiologic exam of the left knee. Views: 3 views. COMPARISON: No relevant prior studies available. FINDINGS: Bones/joints: Mild Tricompartmental joint space narrowing and osteophyte formation consistent with degenerative changes. There is no evidence of acute fracture.There is no evidence of malalignment or dislocation. Soft tissues: Normal. IMPRESSION: 1. Mild Tricompartmental joint space narrowing and osteophyte formation consistent with degenerative changes. 2. There is no evidence of acute fracture.There is no evidence of malalignment or dislocation. Dictated and Authenticated by: Gm Kapoor MD. Ordering:JATIN Forde MD
--- NOTE | 2023-11-24 12:38 | DI.VRAD_ITS ---
PROCEDURE INFORMATION: Exam: XR Left Hip Exam date and time: 11/24/2023 10:42 AM Age: 83 years old Clinical indication: Other: Falls, L hip pain TECHNIQUE: Imaging protocol: Radiologic exam of the left hip. Views: 2 or 3 views hip with pelvis when performed. COMPARISON: CT PELVIC WO 04/20/2023 8:59 PM FINDINGS: Bones/joints: Right hip arthroplasty without evidence of complication. Displaced subcapital femoral neck fracture of the left hip. Soft tissues: Soft tissue swelling of the left hip IMPRESSION: 1. Right hip arthroplasty without evidence of complication. 2. Displaced subcapital femoral neck fracture of the left hip. Dictated and Authenticated by: Gm Kapoor MD. Ordering:JATIN Forde MD
--- NOTE | 2023-11-24 12:39 | DI.VRAD_ITS ---
PROCEDURE INFORMATION: Exam: XR Chest Exam date and time: 11/24/2023 10:57 AM Age: 83 years old Clinical indication: Other: Pre op TECHNIQUE: Imaging protocol: Radiologic exam of the chest. Views: 1 view. COMPARISON: CR XR CHEST 2V PA LATERAL 03/18/2023 3:04 PM FINDINGS: Lungs: Hyperexpanded lung beck consistent with COPD. No focal consolidation. Pleural spaces: Unremarkable. No pleural effusion. No pneumothorax. Heart/Mediastinum: Mild cardiomegaly Bones/joints: Severe deformity of the cervical and thoracic spine Other findings: The patient is rotated to the right IMPRESSION: Hyperexpanded lung beck consistent with COPD. No focal consolidation. Dictated and Authenticated by: Gm Kapoor MD. Ordering:JATIN Forde MD
--- NOTE | 2023-11-24 13:30 | DI.RAD_ITS ---
Exam(s) XR FEMUR LT EXAM: XR FEMUR LT CLINICAL HISTORY: per ortho request, surgical planning. TECHNIQUE: 2D digital imaging was performed. COMPARISON: CR,XR XR FEMUR RT from 04/20/2023 FINDINGS: Two views. There is a displaced subcapital fracture of the left femoral neck. No other fractures identified in the femur. No osseous lesions. IMPRESSION: Displaced subcapital fracture of the left femoral neck. DATA REPOSITORY: RADIATION DOSE DELIVERED:
--- NOTE | 2023-11-24 15:05 | DI.VRAD_ITS ---
PROCEDURE INFORMATION: Exam: XR Left Femur Exam date and time: 11/24/2023 2:23 PM Age: 83 years old Clinical indication: Pain; Hip and thigh; Left; Patient HX: Per ortho request, surgical planning TECHNIQUE: Imaging protocol: Radiologic exam of the left femur. Views: 2 views. COMPARISON: CR XR KNEE LT 3V AP,LAT,SAM 11/24/2023 10:44 AM FINDINGS: Bones/joints: Displaced subcapital femoral neck fracture. No femoral shaft fracture. Soft tissues: Soft tissue swelling of the thigh IMPRESSION: 1. Displaced subcapital femoral neck fracture. 2. No femoral shaft fracture. Dictated and Authenticated by: Gm Kapoor MD. Ordering:JATIN Forde MD
--- NOTE | 2023-11-24 16:26 | W.EDPROG ---
Date of service: 11/24/23 Time of Service: 16:15 Medical Decision Making Handoff report received from BHARGAV Andersen daytime PAUL. Please see his full note for HPI/physical exam/diagnostics. 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 It is unclear when the fall occurred, as she has had multiple falls in the last few weeks. She was diagnosed with a fracture of the left hip, awaiting transfer to [facility] for orthopedic repair. She is currently resting with son and [id number] at bedside, baseline mental status; is easily arousable and able to answer questions, though is unable to follow commands. Tylenol and morphine given for discomfort. Wong catheter placed, as patient is incontinent of urine at baseline. Patient transported to [facility] via ambulance Quality:[facility] Health Related Social Needs: No Data to Display Sign Out Sign Out Data: Sign Out Comment: 83 y/o F awaiting transfer to [facility] for L hip fracture. No complications in ED. Trauma took place on 9.6, has been bedridden for weeks. Resting comfortably in R lateral recumbent position. Last updated by Maurisio Montoya PA at 11/24/23 14:36 Discharge Plan Disposition Patient Disposition: Transfer-Acute Inpatient Care Specific Acute Inpt Facility: [facility] Condition: Stable Discharge Details Clinical Impression: Fracture of left hip Primary Care Provider: Kerry Sanchez ED Provider: Brie Joel Home Meds and New Rx's Prescriptions: No Action sennosides-docusate sodium [Senna with Docusate Sodium] 8.6-50 mg tablet 1 tab-cap PO QHS mirtazapine 7.5 mg tablet 7.5 mg PO QHS magnesium hydroxide [Mitchell Milk of Magnesia] 400 mg/5 mL suspension 5 ml PO DAILY PRN aspirin [Adult Aspirin Regimen] 81 mg tablet,delayed release (DR/EC) 81 mg PO DAILY Fleet Enema 19-7 gram/118 mL enema 118 ml NJ ONCE potassium chloride 20 MEQ packet 20 meq PO DAILY ascorbic acid (vitamin C) [Vitamin C] 500 MG tablet 1 tab PO DAILY One Daily Men's 50+ 1 EACH tablet 1 tab PO DAILY Caltrate 600-D Plus Minerals 1 EACH tablet 1 tab PO DAILY docusate sodium [Colace] 100 MG capsule 100 mg PO DAILY acetaminophen 500 mg Tablet 500 mg PO Q6H PRN fluoxetine 20 mg Tablet 30 mg PO DAILY melatonin 5 mg Tablet 5 mg PO HS PRN magnesium chloride [Mag 64] 64 mg tablet,delayed release (DR/EC) 64 mg PO DAILY Qty: 10 0RF potassium chloride 20 mEq/15 mL liquid 10 meq PO DAILY Qty: 450 0RF carbidopa-levodopa 25-100 mg tablet 1.5 tab PO QID cyanocobalamin (vitamin B-12) 1,000 mcg capsule 1,000 mcg PO QDAY magnesium oxide 400 mg magnesium capsule 400 mg PO BID
[2023-11-24] MEDS: Acetaminophen 325 MG TAB 650 MG PO (17:48)
[2023-11-24 18:32] LABS: Bilirubin Negative (Negative); Blood Negative (Negative); Clarity Cloudy (Clear); Glucose Negative (Negative); Ketones Trace mg/dL (Negative); Leukocyte Esterase Moderate (Negative); Nitrite Positive (Negative); Specific Gravity 1.015 (1.005-1.025); pH >= 9.0 (5-8)
[2023-11-24] MEDS: MORPHine 10 MG/ML VIAL 2 MG IVP ×2 (18:37→21:44)
[2023-11-24 18:46] LABS: RBC 0-2 HPF (0-2); WBC 20-50 HPF (0-5)
[2023-11-24 18:47] LABS: Bacteria Many HPF (Negative); C & S Indicated? Yes; Casts Negative LPF (Negative); Crystals Negative HPF (Negative); Epithelial Cells Rare HPF (Negative); Mucus Negative (Negative)
== END 2023-11-24 21:43 | disposition short-term general hospital (02) ==
PROVIDERS: Physician Assistant; Emergency Provider Nurse Practitioner Family; PCP Family Medicine
DX: S72.012A Unspecified intracapsular fracture of left femur, initial encounter for closed fracture (principal); I10 Essential (primary) hypertension; E78.5 Hyperlipidemia, unspecified; G20.A1 Parkinson's disease without dyskinesia, without mention of fluctuations; F02.80 Dementia in other diseases classified elsewhere, unspecified severity, without behavioral disturbance, psychotic disturbance, mood disturbance, and anxiety; Z96.641 Presence of right artificial hip joint; Z79.82 Long term (current) use of aspirin; W19.XXXA Unspecified fall, initial encounter; Y92.099 Unspecified place in other non-institutional residence as the place of occurrence of the external cause
CPT/HCPCS: 00123; 36415; 73552; 73562; 80053; 82550; 87077; 96374; 96375; 99285; 70450; 71045; 72125; 72128; 72131; 73502; 81003; 81015; 84484; 85025; 87086; 87186; J2270